=== PATIENT | male | born 1950 | race Caucasian/White ===

== ENCOUNTER 2020-11-25 15:42 | Inpatient (IN) ==
[2020-11-25 16:32] LABS: Partial Thromboplastin Ratio 1.1; Partial Thromboplastin Time 27.9 Seconds (21.0-31.0); Prothrombin Time 9.8 Seconds (9.0-12.0)
[2020-11-25 16:38] LABS: Hematocrit (blood only) 20.1 % (42-52); Hemoglobin 6.6 g/dL (14.0-18.0); Mean Corpuscular Hemoglobin 38.8 pg (25-34); Mean Corpuscular Hgb Conc 32.8 g/dL (32-36); Mean Corpuscular Volume 118.2 fL (80-100); Mean Platelet Volume 8.9 fL (7.4-10.4); Nucleated RBC # (auto) 0.13 K/uL (0-0); Nucleated RBC % (auto) 1.2 %; Platelet Count 360 K/uL (130-400); RDW Coefficient of Variation 17.1 % (11.5-14.5); RDW Standard Deviation 71.5 fL (36.4-46.3); White Blood Count 10.55 K/uL (4.8-10.8)
[2020-11-25 16:39] LABS: Alanine Aminotransferase 30 U/L (12-78); Albumin Level 4.1 gm/dl (3.4-5.0); Aspartate Aminotransferase 30 U/L (15-37); BUN Creatinine Ratio 15.7 (10-20); Basophils # (auto) 0.02 K/uL (0-0.2); Basophils % (auto) 0.2 %; Blood Urea Nitrogen 22 mg/dl (7-18); Calcium 8.9 mg/dl (8.5-10.1); Carbon Dioxide 25 mmol/L (21-32); Chloride 108 mmol/L (98-107); Eosinophils # (auto) 0.04 K/uL (0-0.5); Eosinophils % (auto) 0.4 %; Est GFR (African American) 57.5 ml/min; Est GFR (Non-African American) 49.6 ml/min; Glucose 104 mg/dl (70-99); Immature Granulocytes # (auto) 0.13 K/uL (0.00-0.02); Immature Granulocytes % (auto) 1.2 %; Lymphocytes # (auto) 1.61 K/uL (1.2-3.4); Lymphocytes % (auto) 15.3 %; Macrocytosis Present; Monocytes # (auto) 0.94 K/uL (0.11-0.59); Monocytes % (auto) 8.9 %; Neutrophils # (auto) 7.81 K/uL (1.4-6.5); Polychromasia 2+; Potassium 4.4 mmol/L (3.5-5.1); Sodium 138 mmol/L (136-145)
[2020-11-25 16:44] LABS: Albumin Globulin Ratio 1.3 (0.9-2); Alkaline Phosphatase 112 U/L (45-117); Bilirubin,Total 1.4 mg/dl (0.2-1); Globulin 3.3 gm/dl (2.5-4.0); Total Protein 7.4 gm/dl (6.4-8.2); Troponin I < 0.015 ng/ml (0-0.045)
--- NOTE | 2020-11-25 16:48 | XRay Report ---
XR chest 1V portable HISTORY: Atypical Chest Pain COMPARISON: None. FINDINGS: No pneumothorax. No pleural effusions. No focal lung consolidations to suggest pneumonia. N o evidence for pulmonary edema. The heart is normal in size. Small calcification within the left uppe r lobe may represent a pleural plaque. IMPRESSION: No acute process. ACT 112: Negative or not required by law. Electronically signed by: Kelton Cabrera M.D. 11/25/2020 4:46 PM
[2020-11-25] MEDS ORDERED: SODIUM CHLORIDE 0.9% 250 ML IV PRN ×2 (16:50→21:42)
--- NOTE | 2020-11-25 16:53 | Emergency Department Note ---
Impression & Plan Chest pain, Angina of effort, Anemia ED Provider Note NAME: RYLAN LUNA JR AGE: 70 SEX: M : 1950 ARRIVES VIA: Walk-In INFORMANT: Patient, ED PROVIDER(S): Davon Shelby DO CHIEF COMPLAINT: Chest pain HPI: The patient is a 70-year-old male who presented to the emergency department for an evaluation of chest pain. The patient has noticed for the last 2 weeks has been having chest pain symptoms. He notices pain with exertion. He states his pain is moderate to severe especially with any exertion. He notices eileen rtness of breath associated with the chest pain. The pain as well as the shortness of breath are relieved with rest. He is not noticed any fever or cough. He has had no recent injuries. He is noticed no black or bloody bowel movements. He has no chest pain at this time. He notices no swelling in his legs. He states he went to see his family doctor for the symptoms. He was sent to the sign carpenter today. When he went to see the sign carpenter he was referred directly to the emergency department because of his worsening symptoms for possible cardiac work-up. ROS: See above HPI for pertinent positives & negatives. A total of 10 systems reviewed and were otherwise negative. PAST MEDICAL HISTORY: See Below PAST SURGICAL HISTORY: See Below FAMILY HISTORY: See Below SOCIAL HISTORY: See Below HOME MEDICATIONS: See Below ALLERGIES: See Below VITALS: See Below PHYSICAL EXAMINATION: GENERAL: Patient is awake alert in no acute distress patient is resting comfor tably and showing no signs of anxiety EYES: The conjunctivae are pale. The pupils are round and reactive. EARS, NOSE, MOUTH AND THROAT: The nose is without any evidence of any deformity. Mucous membranes are moist. Tongue is midline. NECK: The neck is nontender and supple. RESPIRATORY: Normal respiratory effort is noted there is no evidence of wheezing rhonchi or rales CARDIOVASCULAR: Regular rate and rhythm noted there no murmurs rubs or gallops normal S1 normal S2. GASTROINTESTINAL: The abdomen is soft. Abdomen is nontender. Rectal exam revealed brown stool which was heme-negative. MUSCULOSKELETAL/EXTREMITIES: There is no evidence of gross deformity full range of motion is noted in the hips and shoulders. SKIN: Skin was warm and dry. Trace pedal edema was noted bilaterally. NEUROLOGIC: Patient is awake alert and oriented x3. MEDICAL DECISION MAKING: The patient is a 70-year-old male who presented to the emergency department for an evaluation of chest pain. The patient has been experiencing exertional chest pain over the last 2 weeks. He did go to see his family doctor for the symptoms. He was evaluated by his family doctor and felt to be a candidate for cardiology evaluation. He did see a sign carpenter today and when he described his symptoms especially the worsening of the symptoms with shorter and shorter amounts of exertion he was sent to the emergency department for further evaluation. The patient was found to have significant anemia. I do feel this may explain the patient's exertional symptoms especially how they have been worsening over the last 2 weeks. I discussed the patient's laboratory and radiographic studies with him. I discussed his case with the on-call [facility]. They have agreed to evaluate the patient in the emergency department for further management and disposition. The patient had blood transfusion ordered by myself. I consented the patient for blood. Triage Nursing notes reviewed. Prior medical records reviewed Vital Signs: reviewed and remarkable for no significant abnormalities Differential diagnosis: Cardiac ischemia, aortic dissection, pulmonary embolism, pneumothorax, pneumonia, pericarditis, myocarditis, esophageal rupture, GERD, cholecystitis, pancreatitis, musculoskeletal, as well as other pathologies. ER treatment provided: See below Diagnostics interpreted by me: ECG: EKG was obtained in the emergency department. My interpretation is normal sinus rhythm at 87 bpm. There was no ectopy. There was no acute ST segment abnormalities noted. No previous tracing was available. Cardiac Monitoring: An order was placed for continuous cardiac monitoring. The monitor shows a rate of 88 bpm with sinus rhythm. Laboratory studies: As stated above and show below. Imaging studies: See below Consultation(s): 1735: I discussed this case with Ramesh who is on-call for the [facility]. ED COURSE: Procedures: none PDMP:reviewed and no issues Critical Care: I have personally spent greater than 45 minutes of critical care time in the direct management of this patient. This includes bedside care, interpretation of diagnostic studies, and testing, discussion with consultants, patient, and family members, and other required patient management activities. This 45 minutes is in excess of all separately billable procedures. Past Med/Surg History Medical History (Updated 11/25/20 @ 17:56 by Davon Shelby DO) Arthritis of hand Chronic kidney disease, stage 3 unspecified Chronic urticaria DDD (degenerative disc disease), lumbar Diverticulosis of large intestine without perforation or abscess without bleeding Dyslipidemia Essential (primary) hypertension Hypertensive kidney disease with chronic kidney disease stage III Lumbar spinal stenosis Mild persistent asthma, uncomplicated Pain in right knee Unilateral primary osteoarthritis, right hip Vitamin D deficiency, unspecified Surgical History H/O spinal fusion 2019 S/P lumbar discectomy 1997 Social History Smoking Status: Former smoker Feels Safe at Home: Yes Allergies Allergies Allergy/AdvReac Type Severity Reaction Status Date / Time No Known Allergies Allergy Mild Verified 11/25/20 17:40 Home Meds Home Medications Medication Instructions Recorded Confirmed acetaminophen 500 mg capsule 1,000 mg PO Q8H PRN cap 09/01/20 11/25/20 allopurinol 100 mg tablet 200 mg PO DAILY tab 09/01/20 11/25/20 aspirin 81 mg chewable tablet 81 mg PO DAILY 09/01/20 11/25/20 atorvastatin 40 mg tablet 40 mg PO HS 09/01/20 11/25/20 colchicine 0.6 mg tablet 0.6 mg PO BID PRN 09/01/20 11/25/20 fluticasone propionate 110 2 puff INHALATION BID 09/01/20 11/25/20 mcg/actuation HFA aerosol inhaler gabapentin 400 mg capsule 400 mg PO TID 09/01/20 11/25/20 hydrocortisone 2.5 % topical cream 1 applic TOPICAL BID PRN 09/01/20 11/25/20 lisinopril 20 mg tablet 20 mg PO DAILY 09/01/20 11/25/20 loratadine 10 mg tablet 10 mg PO DAILY 09/01/20 11/25/20 triamcinolone acetonide 0.1 % 1 applic TOPICAL BID PRN 09/01/20 11/25/20 topical cream albuterol sulfate 1 puff INHALATION DIRECTED PRN 11/25/20 11/25/20 cholecalciferol (vitamin D3) 50 mcg PO DAILY 11/25/20 11/25/20 [Vitamin D3] metoprolol succinate 25 mg PO DAILY 11/25/20 11/25/20 Results & Data (ED) Vital Signs Vital Signs - 24 hr 11/25/20 15:49 Temperature 36.6 C Temperature Source Skin Pulse Rate 88 Respiratory Rate 18 Blood Pressure 135/68 Blood Pressure Mean 90 Pulse Oximetry 98 Oxygen Delivery Method Room Air Sepsis Recent Fever Within 48 Hours No Sepsis New/Unexplained Change in Mental Status No Sepsis Action Taken by Nursing No Action Required Home Medications Current Medication List: was personally reviewed by me Laboratory Data Attestation: I reviewed the patient's lab results. Result diagrams: 11/25/20 Unknown 11/25/20 Unknown Lab Results 11/25/20 11/25/20 11/25/20 Range/Units 16:51 Unknown Unknown WBC 10.55 (4.8-10.8) K/uL RBC 1.70 L (4.7-6.1) M/uL Hgb 6.6 L* (14.0-18.0) g/dL Hct 20.1 L* (42-52) % MCV 118.2 H (80-100) fL MCH 38.8 H (25-34) pg MCHC 32.8 (32-36) g/dL RDW Std Deviation 71.5 H (36.4-46.3) fL RDW Coeff of Marjorie 17.1 H (11.5-14.5) % Plt Count 360 (130-400) K/uL MPV 8.9 (7.4-10.4) fL Immature Gran % (Auto) 1.2 % Neut % (Auto) 74.0 % Lymph % (Auto) 15.3 % [place] % (Auto) 8.9 % Eos % (Auto) 0.4 % Baso % (Auto) 0.2 % Reticulocyte % (Auto) (0.5-2.0) % Neut # (Auto) 7.81 H (1.4-6.5) K/uL Lymph # (Auto) 1.61 (1.2-3.4) K/uL [place] # (Auto) 0.94 H (0.11-0.59) K/uL Eos # (Auto) 0.04 (0-0.5) K/uL Baso # (Auto) 0.02 (0-0.2) K/uL Reticulocyte # (0.02-0.10) 10^6/uL Immature Gran # (Auto) 0.13 H (0.00-0.02) K/uL Absolute Nucleated RBC 0.13 H (0-0) K/uL Nucleated RBC % (auto) 1.2 % Polychromasia 2+ Macrocytosis Present PT 9.8 (9.0-12.0) Seconds INR 1.0 (0.9-1.1) APTT 27.9 (21.0-31.0) Seconds PTT Ratio 1.1 Sodium (136-145) mmol/L Potassium (3.5-5.1) mmol/L Chloride (98-107) mmol/L Carbon Dioxide (21-32) mmol/L Anion Gap (3-11) BUN (7-18) mg/dl Creatinine (0.6-1.4) mg/dl Est Cr Clr Drug Dosing Est GFR ( Amer) ml/min Est GFR (Non-Af Amer) ml/min BUN/Creatinine Ratio (10-20) Glucose (70-99) mg/dl Calcium (8.5-10.1) mg/dl Total Bilirubin (0.2-1) mg/dl AST (15-37) U/L ALT (12-78) U/L Alkaline Phosphatase (45-117) U/L Troponin I (0-0.045) ng/ml Total Protein (6.4-8.2) gm/dl Albumin (3.4-5.0) gm/dl Globulin (2.5-4.0) gm/dl Albumin/Globulin Ratio (0.9-2) Crossmatch See Detail 11/25/20 11/25/20 Range/Units Unknown Unknown WBC (4.8-10.8) K/uL RBC (4.7-6.1) M/uL Hgb (14.0-18.0) g/dL Hct (42-52) % MCV (80-100) fL MCH (25-34) pg MCHC (32-36) g/dL RDW Std Deviation (36.4-46.3) fL RDW Coeff of Marjorie (11.5-14.5) % Plt Count (130-400) K/uL MPV (7.4-10.4) fL Immature Gran % (Auto) % Neut % (Auto) % Lymph % (Auto) % [place] % (Auto) % Eos % (Auto) % Baso % (Auto) % Reticulocyte % (Auto) 22.8 H (0.5-2.0) % Neut # (Auto) (1.4-6.5) K/uL Lymph # (Auto) (1.2-3.4) K/uL [place] # (Auto) (0.11-0.59) K/uL Eos # (Auto) (0-0.5) K/uL Baso # (Auto) (0-0.2) K/uL Reticulocyte # 0.39 H (0.02-0.10) 10^6/uL Immature Gran # (Auto) (0.00-0.02) K/uL Absolute Nucleated RBC (0-0) K/uL Nucleated RBC % (auto) % Polychromasia Macrocytosis PT (9.0-12.0) Seconds INR (0.9-1.1) APTT (21.0-31.0) Seconds PTT Ratio Sodium 138 (136-145) mmol/L Potassium 4.4 (3.5-5.1) mmol/L Chloride 108 H (98-107) mmol/L Carbon Dioxide 25 (21-32) mmol/L Anion Gap 5.0 (3-11) BUN 22 H (7-18) mg/dl Creatinine 1.43 H (0.6-1.4) mg/dl Est Cr Clr Drug Dosing Not Reportable Est GFR ( Amer) 57.5 ml/min Est GFR (Non-Af Amer) 49.6 ml/min BUN/Creatinine Ratio 15.7 (10-20) Glucose 104 H (70-99) mg/dl Calcium 8.9 (8.5-10.1) mg/dl Total Bilirubin 1.4 H (0.2-1) mg/dl AST 30 (15-37) U/L ALT 30 (12-78) U/L Alkaline Phosphatase 112 (45-117) U/L Troponin I < 0.015 (0-0.045) ng/ml Total Protein 7.4 (6.4-8.2) gm/dl Albumin 4.1 (3.4-5.0) gm/dl Globulin 3.3 (2.5-4.0) gm/dl Albumin/Globulin Ratio 1.3 (0.9-2) Crossmatch Imaging Data Radiologist's Impression: Chest X-Ray 11/25/20 16:10 XR chest 1V portable HISTORY: Atypical Chest Pain COMPARISON: None. FINDINGS: No pneumothorax. No pleural effusions. No focal lung consolidations to suggest pneumonia. No evidence for pulmonary edema. The heart is normal in size. Small calcification within the left upper lobe may represent a pleural plaque. IMPRESSION: No acute process. ACT 112: Negative or not required by law. Electronically signed by: Kelton Cabrera M.D. 11/25/2020 4:46 PM Discharge Plan Visit Data Chief Complaint: Arrhythmia/Palpitations Stated Complaint: DR HERNANDEZ SENT FOR HEART ISSUES ED Provider: Davon Shelby Discharge Problem: Chest pain, Angina of effort, Anemia Patient Disposition: Being Evaluated by Hospitalist Condition: Good Forms Stand Alone Forms: [facility] [place] Prescriptions Prescriptions: No Action colchicine 0.6 mg tablet 0.6 mg PO BID PRN (Reason: GOUT FLARE UPS) RF: 0 loratadine 10 mg tablet 10 mg PO DAILY RF: 0 aspirin 81 mg tablet,chewable 81 mg PO DAILY RF: 0 acetaminophen 500 mg capsule 1,000 mg PO Q8H PRN (Reason: Pain) RF: 0 Flovent HFA 110 mcg/actuation HFA aerosol inhaler 2 puff inhalation BID RF: 0 gabapentin 400 mg capsule 400 mg PO TID RF: 0 triamcinolone acetonide 0.1 % cream 1 applic topical BID PRN (Reason: Skin Irritation) RF: 0 lisinopril 20 mg tablet 20 mg PO DAILY RF: 0 atorvastatin 40 mg tablet 40 mg PO HS RF: 0 allopurinol 100 mg tablet 200 mg PO DAILY RF: 0 hydrocortisone 2.5 % cream 1 applic topical BID PRN (Reason: Skin Irritation) RF: 0 cholecalciferol (vitamin D3) [Vitamin D3] 50 mcg (2,000 unit) Capsule 50 mcg PO DAILY RF: 0 albuterol sulfate 90 mcg/actuation HFA aerosol inhaler 1 puff INHALATION DIRECTED PRN (Reason: Shortness Of Breath) RF: 0 metoprolol succinate 25 mg tablet extended release 24 hr 25 mg PO DAILY RF: 0 Referrals Referrals: David Garcia MD [Primary Care Provider] - Discharge Problem: Chest pain Qualifiers: Chest pain type: unspecified Qualified Code(s): R07.9 - Chest pain, unspecified Anemia Qualifiers: Anemia type: unspecified type Qualified Code(s): D64.9 - Anemia, unspecified
[2020-11-25 17:06] LABS: Reticulocyte % 22.8 % (0.5-2.0); Reticulocytes # 0.39 10^6/uL (0.02-0.10)
--- NOTE | 2020-11-25 17:37 | History & Physical Report ---
Date of Service November 25, 2020 Assessment & Plan (1) Chest pain: - Admit to PCU for r/o - Trend cardiac biomarkers, initial set was negative - EKG reviewed as above - Check 2 D echo - Likely due to severe anemia vs cardiac cause, was seen by Dr. Viclhis in outpatient clinic earlier today. Will consult their team. - PT/OT consulted (2) Anemia, macrocytic: - Check anemia workup for further evaluation- MCV 118.2, MCH 38.8 - Likely contributing to the patient's chest pain over the past 2 weeks vs cardiac cause. - Hemoccult was negative in the ER - no ROS positive for gi bleed. - Consider hematology consult pending results, will likely require outpatient follow up on dc. (3) Essential (primary) hypertension: -History of such, continue lisinopril 20 mg daily - Was started on metoprolol succinate 25 mg daily on 11/24 by PCP, will continue for now. Possible that pt wont need this is symptomatic anemia from non cardiac cause. (4) Dyslipidemia: -Continue statin therapy (5) Chronic kidney disease, stage 3 unspecified: -History of such, baseline of 1.2, currently Cr. 1.43, BUN 22 -Avoid nephrotoxins and renally reduce medications (6) Lumbar spinal stenosis: -History of lumbar decompression fusion from L4-S1 done at [facility] in January 2019. -Patient reports rarely taking ibuprofen for pain relief (7) DDD (degenerative disc disease), lumbar: -As above DVT PPx: - teds, scds, no chemical prophylaxis in the setting of severe anemia CODE: Full code Dispo: From home, likely to remain in the hospital x 1-2 days History of Present Illness Primary Care Provider: David Garcia MD This is a 70-year-old male with PMHx of HTN, HLD, CKD stage III, asthma, diverticulosis, spinal stenosis, degenerative disc disease, osteoarthritis who presents to the ER with acute chest pain over the last 2 weeks. 2 weeks ago he complained of a near syncopal event on a hot day at his granddaughter's birthday green party. He felt as if he was going to pass out but then he went into the house to cool down and felt somewhat better. In the past 2 weeks when he was exposed to warm weather again, he felt as if he was going to pass out. There was some mild associated shortness of breath at that time. Symptoms slowly resolved that day. Over the past 2 weeks he has noted progressive dyspnea on exertion with it associated chest burning. Discomfort and shortness of breath is now occurring with ADLs. Seen by his primary care physician yesterday where ECG was performed. No ischemic changes were noted. He was prescribed metoprolol succinate 25 mg and started yesterday. Chronically treated with aspirin and statin therapy. Today, patient experienced significant shortness of breath upon walking from the [facility] space into cardiology office at [facility]. His SOB required him to stop and sit down on his rolling walker 3 times. States that the exertional chest burning has improved with addition of beta-gabrielle therapy however dyspnea persists. Currently he denies any chest pain. Patient was sent to the ER based on his symptoms and was found to have a hemoglobin of 6.6. Heme negative on BRAXTON performed in the ER. He has been ordered 2 units of PRBCs. Allergies Allergy/AdvReac Type Severity Reaction Status Date / Time No Known Allergies Allergy Mild Verified 11/25/20 17:40 Home Medications Medication Instructions Recorded Confirmed Type acetaminophen 500 mg capsule 1,000 mg PO Q8H PRN cap 09/01/20 11/25/20 History allopurinol 100 mg tablet 200 mg PO DAILY tab 09/01/20 11/25/20 History aspirin 81 mg chewable tablet 81 mg PO DAILY 09/01/20 11/25/20 History atorvastatin 40 mg tablet 40 mg PO HS 09/01/20 11/25/20 History colchicine 0.6 mg tablet 0.6 mg PO BID PRN 09/01/20 11/25/20 History fluticasone propionate 110 2 puff INHALATION BID 09/01/20 11/25/20 History mcg/actuation HFA aerosol inhaler gabapentin 400 mg capsule 400 mg PO TID 09/01/20 11/25/20 History hydrocortisone 2.5 % topical cream 1 applic TOPICAL BID PRN 09/01/20 11/25/20 History lisinopril 20 mg tablet 20 mg PO DAILY 09/01/20 11/25/20 History loratadine 10 mg tablet 10 mg PO DAILY 09/01/20 11/25/20 History triamcinolone acetonide 0.1 % 1 applic TOPICAL BID PRN 09/01/20 11/25/20 History topical cream albuterol sulfate 1 puff INHALATION DIRECTED PRN 11/25/20 11/25/20 History cholecalciferol (vitamin D3) 50 mcg PO DAILY 11/25/20 11/25/20 History [Vitamin D3] metoprolol succinate 25 mg PO DAILY 11/25/20 11/25/20 History Past Med/Surg History Medical History (Updated 11/25/20 @ 17:56 by Davon Shelby DO) Arthritis of hand Chronic kidney disease, stage 3 unspecified Chronic urticaria DDD (degenerative disc disease), lumbar Diverticulosis of large intestine without perforation or abscess without bleeding Dyslipidemia Essential (primary) hypertension Hypertensive kidney disease with chronic kidney disease stage III Lumbar spinal stenosis Mild persistent asthma, uncomplicated Pain in right knee Unilateral primary osteoarthritis, right hip Vitamin D deficiency, unspecified Surgical History H/O spinal fusion 2019 S/P lumbar discectomy 1997 Social History Smoking Status: Former smoker Feels Safe at Home: Yes Review of Systems Review of Systems: Constitutional: No fever, sweats or chills Eyes: No diplopia, no worsening or blurred vision ENT: normal hearing, no trouble swallowing Respiratory: No cough, sputum, dyspnea at rest or on exertion Cardiovascular: As per HPI. Currently no chest pain, tightness or palpitations Abdomen: No pain, nausea, vomiting, diarrhea or constipation Musculoskeletal: No joint pain, calf pain, swelling Neurologic: No weakness, numbness/tingling, or balance problems Psychiatric: No anxiety or depression Skin: No rash or itch Physical Exam Physical Exam: General: awake, alert, no apparent distress, obese Head: Normocephalic, atraumatic ENT: PERRL, EOMI, +pale palpebral conjunctiva, pallor of pharynx, no pharyngeal exudate, mucous membranes moist Chest: Clear to auscultation, on room air, no adventitious breath sounds Cardiac: Regular rate and rhythm, no murmur, no JVD, normal peripheral pulses, good capillary refill Abdominal: NABS x 4 quadrants, soft, nondistended, nontender to palpation, no rebound or guarding Extremities: +pallor, few small areas over BUE of ecchymosis, otherwise normal inspection, no peripheral edema or erythema, calfs nontender to palpation Psych: Normal mood and affect Neuro: AAO x 3, strength intact bilaterally and rated 5/5, no motor deficits, s peech is clear, no peripheral sensory deficits Results & Data Results & Data ([facility]) Vital Signs (Past 12 Hours) Vital Signs Temp Pulse Resp BP Pulse Ox 11/25/20 15:49 36.6 C 88 18 135/68 98 Diagnostic Findings Chest X-Ray 11/25/20 16:10 XR chest 1V portable HISTORY: Atypical Chest Pain COMPARISON: None. FINDINGS: No pneumothorax. No pleural effusions. No focal lung consolidations to suggest pneumonia. No evidence for pulmonary edema. The heart is normal in size. Small calcification within the left upper lobe may represent a pleural plaque. IMPRESSION: No acute process. ACT 112: Negative or not required by law. Electronically signed by: Kelton Cabrera M.D. 11/25/2020 4:46 PM Code Status & VTE Plan Code Status Full code - discussed with the patient at bedside. Supervising Physician Co-Signing Physician Notes Care coordinated with Zora Vu PA-C. Agree with above note. Patient seen and examined. Please refer to her notes for full details. Vital signs reviewed. Physical exam: General exam: Alert and oriented. Not in acute distress. CVS: S1 and S2 heard, regular rate and rhythm, no murmurs. RS: Clear to auscultation, no wheezing or crackles. ABD: Soft, bowel sounds present, nontender, no distention. BILLBOARD INSTALLER: Nonfocal. EXT: No edema, no erythema. Labs: Reviewed. Assessment and plan: 70M with hx of HTN , asthma, ckd stage 3,hyperlipidemia presents with ongoing chest pain and sob on exertion. About two weeks ago he had near syncope on his grand daughter birthday.Was prescribed b gabrielle by PCP> Today experienced significant sob on going to cardiology office and was sent here further evaluation and in ER found to have hb 6.6. Hemeoccult negative Currently resting comfortably. Symptomatic anemia macrocytic hb 6.6 hemeoccult negative iron and vitamin b12 and folate levels ok having antibodies- will take time to get he blood to transfuse two units and hold two units heme/onco consult in patinet vs out patient GI consult. Chest pain sob on exertion ekg ok follow troponin and echo tele monitoring anemia contributing cardiology consult in am. Other diagnosis and plan of care as per Zora Vu PA-C. Manjit durán MD. (1) Chest pain Chest pain type: unspecified Qualified Code(s): R07.9 - Chest pain, unspecified
[2020-11-25 18:27] LABS: Ferritin 509.7 ng/ml (8-388); T4 Free Thyroxine 1.02 ng/dl (0.8-1.6); Thyroid Stimulating Hormone 0.767 uIu/ml (0.300-4.500)
[2020-11-25 20:02] LABS: Folate (Folic Acid) 16.1 ng/ml (>5.38)
[2020-11-25] MEDS ORDERED: ONDANSETRON INJ 2 MG/ML 2 ML VIAL IV PRN (21:59)
[2020-11-25] MEDS ORDERED: ACETAMINOPHEN 325 MG TAB PO PRN (21:59)
[2020-11-25] MEDS ORDERED: ALBUTEROL HFA 8 GM INHALER INH PRN (21:59)
[2020-11-25] MEDS ORDERED: TRIAMCINOLONE ACET 0.1% CR 15 GM TUBE TOP PRN (21:59)
[2020-11-25] MEDS: GABAPENTIN 400 MG CAP PO SCH (22:29)
[2020-11-25] MEDS: FLUTICASONE FUROATE 200MCG 14 PUFFS/INHALER INH SCH (22:29)
[2020-11-25] MEDS: ATORVASTATIN 40 MG TAB PO SCH (22:29)
[2020-11-25 23:17] LABS: Hematocrit (blood only) 18.8 % (42-52); Hemoglobin 6.1 g/dL (14.0-18.0)
[2020-11-26 06:47] LABS: Hematocrit (blood only) 18.4 % (42-52); Hemoglobin 5.8 g/dL (14.0-18.0); Mean Corpuscular Hemoglobin 38.2 pg (25-34); Mean Corpuscular Hgb Conc 31.5 g/dL (32-36); Mean Corpuscular Volume 121.1 fL (80-100); Mean Platelet Volume 8.8 fL (7.4-10.4); Nucleated RBC # (auto) 0.06 K/uL (0-0); Platelet Count 329 K/uL (130-400); RDW Coefficient of Variation 17.2 % (11.5-14.5); RDW Standard Deviation 73.4 fL (36.4-46.3); Red Blood Count 1.52 M/uL (4.7-6.1); White Blood Count 6.58 K/uL (4.8-10.8)
[2020-11-26 07:01] LABS: Basophils # (auto) 0.01 K/uL (0-0.2); Basophils % (auto) 0.2 %; Eosinophils # (auto) 0.07 K/uL (0-0.5); Eosinophils % (auto) 1.1 %; Immature Granulocytes # (auto) 0.06 K/uL (0.00-0.02); Immature Granulocytes % (auto) 0.9 %; Lymphocytes # (auto) 1.64 K/uL (1.2-3.4); Lymphocytes % (auto) 24.9 %; Monocytes # (auto) 0.64 K/uL (0.11-0.59); Monocytes % (auto) 9.7 %; Neutrophils # (auto) 4.16 K/uL (1.4-6.5); Neutrophils % (auto) 63.2 %; Polychromasia 2+; Spherocytes 1+; Tear Drop Cells 1+
[2020-11-26 07:29] LABS: Albumin Level 3.5 gm/dl (3.4-5.0); Aspartate Aminotransferase 25 U/L (15-37); BUN Creatinine Ratio 15.7 (10-20); Blood Urea Nitrogen 16 mg/dl (7-18); Calcium 8.5 mg/dl (8.5-10.1); Carbon Dioxide 25 mmol/L (21-32); Chloride 109 mmol/L (98-107); Creatinine Clr Calc Pharmacy 74.9 ml/min; Est GFR (African American) 86.5 ml/min; Est GFR (Non-African American) 74.6 ml/min; Glucose 107 mg/dl (70-99); Magnesium 2.3 mg/dl (1.8-2.4); Potassium 4.2 mmol/L (3.5-5.1); Sodium 140 mmol/L (136-145)
[2020-11-26 07:33] LABS: Alanine Aminotransferase 24 U/L (12-78); Albumin Globulin Ratio 1.2 (0.9-2); Alkaline Phosphatase 97 U/L (45-117); Bilirubin,Total 1.5 mg/dl (0.2-1); Globulin 2.8 gm/dl (2.5-4.0); Phosphorus 3.2 mg/dl (2.5-4.9); Total Protein 6.3 gm/dl (6.4-8.2); Troponin I < 0.015 ng/ml (0-0.045)
[2020-11-26] MEDS ORDERED: ASPIRIN 81 MG ECTAB PO SCH (09:00)
[2020-11-26] MEDS: GABAPENTIN 400 MG CAP PO SCH ×3 (09:03→19:34)
[2020-11-26] MEDS: lisinopril 20 MG TAB PO SCH (09:04)
[2020-11-26] MEDS: LORATADINE 10 MG TAB PO SCH (09:04)
[2020-11-26] MEDS: allopurinoL 100 MG TAB PO SCH (09:04)
[2020-11-26] MEDS: METOPROLOL SUCC 25MG EXT REL TAB PO SCH (09:04)
[2020-11-26] MEDS: CHOLECALCIFEROL 1,000 UNITS 25 MCG TAB PO SCH (09:05)
--- NOTE | 2020-11-26 11:42 | Cardiology Consultation ---
Date of Consultation November 26, 2020 Assessment & Plan (1) Anemia, macrocytic: (2) Chest pain: (3) Anemia: (4) Essential (primary) hypertension: (5) Dyslipidemia: (6) Dyspnea on exertion: Mr. Tanner initially presented as an outpatient for symptoms consistent with unstable angina. Admitted to [facility] and upon arrival found to be profoundly anemic. EKG, troponin and echocardiogram all unremarkable. I believe his symptoms are secondary to his profound anemia and not an acute ischemic event. Possible component of demand ischemia but given anemia and normal wall motion on echocardiogram ischemic evaluation will be deferred at this time. Recommend transfusing to maintain hemoglobin greater than 10. Obviously, no indication for anticoagulation at this time. We will defer anemia work-up to the primary team. We will continue to follow closely during admission. History of Present Illness Reason for Consultation: Chest pain and dyspnea with exertion Requesting Physician: [facility] Attending Physician: Rosalinda Yuen MD History of Present Illness 70 year old male presents for evaluation of chest discomfort, shortness of breath, and near syncope. Describes an episode of near syncope approximately 2 weeks ago during his granddaughter's birthday green party. He notes it was a hot day. He felt as if he was blacking out. He went into the house to cool down and felt somewhat better. When he returned to the warm weather again he felt as if he was going to pass out. There was some mild associated shortness of breath. Symptoms slowly resolved that day. Over the past 2 weeks he has noted progressive dyspnea on exertion with it associated chest burning. Discomfort and shortness of breath occurring at progressively lower levels of activity/exercise. Seen by his primary care physician yesterday where ECG was performed. No ischemic changes. Prescribed low-dose beta-gabrielle therapy. Chronically treated with aspirin and statin therapy. On 11/25/[address] Dinh of our cardiology practice. At that time he experienced significant shortness of breath upon walking from the [employer] parking to the office. He had to stop and sit on his rolling walker 3 times. States that the exertional chest burning has improved with addition of beta-gabrielle therapy however dyspnea persists. Denies any resting chest discomfort or shortness of breath. No recurrent lightheadedness, dizziness, syncope, or near syncope. Denies palpitations recent travel, lower extremity edema, calf tenderness, or history of thrombosis. Currently out of bed in chair receiving transfusion. Notes energy seems to be improving with transfusion. Allergies Allergy/AdvReac Type Severity Reaction Status Date / Time No Known Allergies Allergy Mild Verified 11/25/20 17:40 Home Medications Medication Instructions Recorded Confirmed Type acetaminophen 500 mg capsule 1,000 mg PO Q8H PRN cap 09/01/20 11/25/20 History allopurinol 100 mg tablet 200 mg PO DAILY tab 09/01/20 11/25/20 History aspirin 81 mg chewable tablet 81 mg PO DAILY 09/01/20 11/25/20 History atorvastatin 40 mg tablet 40 mg PO HS 09/01/20 11/25/20 History colchicine 0.6 mg tablet 0.6 mg PO BID PRN 09/01/20 11/25/20 History fluticasone propionate 110 2 puff INHALATION BID 09/01/20 11/25/20 History mcg/actuation HFA aerosol inhaler gabapentin 400 mg capsule 400 mg PO TID 09/01/20 11/25/20 History hydrocortisone 2.5 % topical cream 1 applic TOPICAL BID PRN 09/01/20 11/25/20 History lisinopril 20 mg tablet 20 mg PO DAILY 09/01/20 11/25/20 History loratadine 10 mg tablet 10 mg PO DAILY 09/01/20 11/25/20 History triamcinolone acetonide 0.1 % 1 applic TOPICAL BID PRN 09/01/20 11/25/20 History topical cream albuterol sulfate 1 puff INHALATION DIRECTED PRN 11/25/20 11/25/20 History cholecalciferol (vitamin D3) 50 mcg PO DAILY 11/25/20 11/25/20 History [Vitamin D3] metoprolol succinate 25 mg PO DAILY 11/25/20 11/25/20 History Patient History Medical History Arthritis of hand Chronic kidney disease, stage 3 unspecified Chronic urticaria DDD (degenerative disc disease), lumbar Diverticulosis of large intestine without perforation or abscess without bleeding Dyslipidemia Essential (primary) hypertension Hypertensive kidney disease with chronic kidney disease stage III Lumbar spinal stenosis Mild persistent asthma, uncomplicated Pain in right knee Unilateral primary osteoarthritis, right hip Vitamin D deficiency, unspecified Surgical History H/O spinal fusion 2019 S/P lumbar discectomy 1997 Social History Smoking Status: Former smoker Hx Alcohol Use: Yes Alcohol type: beer Hx Substance Use: No Preferred Language: Turkmen Communication Ability: Effective Correspondence Analyst Required: No Beliefs That Will Affect Care: None Current Living Situation: Spouse Other Information That Helps Us Care for You: No Feels Safe at Home: Yes Safety Concerns: Feels Safe At This Time Assistive Devices: Glasses Review of Systems Review of Systems: All systems reviewed & are unremarkable except as noted in HPI & below Physical Exam Physical Exam: General: Awake, alert and oriented x 3. No acute distress. HEENT: Normocephalic, atraumatic. Pupils equal, round and reactive to light and accommodation. Extraocular muscles are intact. Anicteric sclera. Moist mucous membranes. Neck: No JVD. No bruit. Cardiovascular: Regular. Positive S-4. Normal S-1 and S-2. No S-3. 3/6 mid to late systolic ejection murmur, greatest at the right sternal border, second intercostal space with radiation to the bilateral carotids. No rubs. Pulmonary: Clear to auscultation bilaterally. No rales, rhonchi, or wheezing. Abdomen: Bowel sounds x 4, soft. No rebound, guarding or tenderness. No organomegaly. Extremities: No clubbing, cyanosis or edema. +2 pedal pulses bilaterally. Skin: Warm and dry. Results & Data ([facility]) Vital Signs (Past 12 Hours) Vital Signs Temp Pulse Pulse Resp BP BP Pulse Ox 11/26/20 10:47 36.8 C 91 H 20 110/66 98 11/26/20 10:32 36.7 C 84 16 115/66 94 11/26/20 07:37 36.7 C 83 20 126/72 95 11/26/20 03:22 36.6 C 84 18 124/68 92 11/26/20 00:00 85 (1) Anemia Anemia type: unspecified type Qualified Code(s): D64.9 - Anemia, unspecified (2) Chest pain Chest pain type: unspecified Qualified Code(s): R07.9 - Chest pain, unspecified
[2020-11-26 19:02] LABS: Hematocrit (blood only) 25.2 % (42-52); Hemoglobin 8.2 g/dL (14.0-18.0); Mean Corpuscular Hemoglobin 33.7 pg (25-34); Mean Corpuscular Hgb Conc 32.5 g/dL (32-36); Mean Corpuscular Volume 103.7 fL (80-100); Nucleated RBC # (auto) 0.16 K/uL (0-0); Platelet Count 308 K/uL (130-400); RDW Coefficient of Variation 26.4 % (11.5-14.5); RDW Standard Deviation 94.4 fL (36.4-46.3); Red Blood Count 2.43 M/uL (4.7-6.1); White Blood Count 8.23 K/uL (4.8-10.8)
[2020-11-26] MEDS: ATORVASTATIN 40 MG TAB PO SCH (19:34)
[2020-11-26] MEDS: FLUTICASONE FUROATE 200MCG 14 PUFFS/INHALER INH SCH (19:35)
--- NOTE | 2020-11-26 19:45 | Hospitalist Progress Note ---
Date of Service November 26, 2020 Assessment & Plan (1) Chest pain: Mostly related to severe anemia Troponin x 3 negative EKG showed no acute ischemic changes Echo showed no LV wall motion abnormality with EF greater than 70 Cardiology on board and recommended to keep hgb above 10 Continue to hold aspirin Continue Metoprolol and statin (2) Anemia, macrocytic: Symptomatic anemia Hgb on admission 6.1, then 5.8 today Hemoccult was negative in the ER and denies any dark stool Last colonoscopy was about 2 years ago as per patient and was negative for malignancy Aspirin on hold Continue monitor CBC Cardiology recommended to keep hgb above 10 Will need follow up with hematology If Hgb continues to drop, will consult hematology and gastro (3) Essential (primary) hypertension: Continue Lisinopril and metoprolol stable (4) Dyslipidemia: -Continue statin therapy (5) Chronic kidney disease, stage 3 unspecified: Creatinine 1.4 on admission, baseline of 1.2, Creatinine 1.02 today Avoid nephrotoxins agents Continue monitor BMP (6) DDD (degenerative disc disease), lumbar: DVT PPx: teds, scds, no chemical prophylaxis in the setting of severe anemia CODE: Full code Dispo Will discharge once medically stable (7) Lumbar spinal stenosis: History of lumbar decompression fusion from L4-S1 done at [facility] in January 2019. Patient reports rarely taking ibuprofen for pain relief Pt was advised to avoid any NSAIDs Admission and Anticipated Discharge Date Admission Date: November 25, 2020 Subjective Pt was seen and examined for anemia Sitting in chair with no distress Pt said that he feels weak He is getting the 1st unit PRBC since he had antibodies that delayed the transfusion Denies any chest pain, palpitation, dizziness and SOB Review of Systems Review of Systems: All systems reviewed & are unremarkable except as noted in Subjective Physical Exam Physical Exam: General- No acute distress Head- atraumatic Eyes- PERRL, EOMI, ENT- oropharynx clear Neck- supple, no JVD Lungs- clear to auscultation Heart- regular rhythm; + murmur Abdomen- normal bowel sounds, soft, nontender Extremities- no calf tenderness Neuro- alert, oriented x 3; PERRL, EOMI; no facial palsy; no dysarthria Skin- warm & dry Results & Data Results & Data ([facility]) Vital Signs (Past 12 Hours) Vital Signs Temp Pulse Pulse Resp BP BP Pulse Ox 11/26/20 19:01 36.7 C 92 H 20 117/71 91 11/26/20 14:48 77 16 133/77 96 11/26/20 14:18 36.8 C 77 16 107/68 96 11/26/20 14:03 36.8 C 82 16 108/67 96 11/26/20 13:48 36.8 C 83 16 145/69 H 96 11/26/20 13:31 36.7 C 93 H 16 145/69 H 96 11/26/20 13:02 36.7 C 84 16 117/71 98 11/26/20 12:02 36.8 C 87 16 129/74 98 11/26/20 11:32 36.8 C 76 16 106/66 97 11/26/20 11:02 36.7 C 76 16 107/66 96 11/26/20 10:47 36.8 C 91 H 20 110/66 98 11/26/20 10:32 36.7 C 84 16 115/66 94 (1) Chest pain Chest pain type: unspecified Qualified Code(s): R07.9 - Chest pain, unspecified
--- NOTE | 2020-11-27 06:19 | Electrocardiogram Report ---
Test Reason : Blood Pressure : / mmHG Vent. Rate : 087 BPM Atrial Rate : 087 BPM P-R Int : 144 ms QRS Dur : 082 ms QT Int : 368 ms P-R-T Axes : 064 040 029 degrees QTc Int : 442 ms Normal sinus rhythm Normal ECG No previous ECGs available Confirmed by Stephane Kunz ([id number]) on 11/27/2020 6:18:51 AM Referred By: Kevin Dinh Confirmed By:Stephane Kunz
[2020-11-27 07:00] LABS: Albumin Level 3.5 gm/dl (3.4-5.0); Calcium 8.5 mg/dl (8.5-10.1); Creatinine Clr Calc Pharmacy 74.5 ml/min; Est GFR (African American) 85.5 ml/min; Est GFR (Non-African American) 73.8 ml/min; Potassium 4.1 mmol/L (3.5-5.1)
[2020-11-27 07:03] LABS: Albumin Globulin Ratio 1.2 (0.9-2); Bilirubin,Total 1.7 mg/dl (0.2-1); Globulin 2.9 gm/dl (2.5-4.0); Total Protein 6.4 gm/dl (6.4-8.2)
[2020-11-27 07:57] LABS: Hematocrit (blood only) 26.5 % (42-52); Hemoglobin 8.8 g/dL (14.0-18.0); Mean Corpuscular Hemoglobin 34.1 pg (25-34); Mean Corpuscular Hgb Conc 33.2 g/dL (32-36); Mean Corpuscular Volume 102.7 fL (80-100); Mean Platelet Volume 8.9 fL (7.4-10.4); Nucleated RBC # (auto) 0.08 K/uL (0-0); Platelet Count 298 K/uL (130-400); Red Blood Count 2.58 M/uL (4.7-6.1); White Blood Count 7.94 K/uL (4.8-10.8)
[2020-11-27] MEDS: LORATADINE 10 MG TAB PO SCH (08:23)
[2020-11-27] MEDS: CHOLECALCIFEROL 1,000 UNITS 25 MCG TAB PO SCH (08:23)
[2020-11-27] MEDS: METOPROLOL SUCC 25MG EXT REL TAB PO SCH (08:23)
[2020-11-27] MEDS: lisinopril 20 MG TAB PO SCH (08:24)
[2020-11-27] MEDS: allopurinoL 100 MG TAB PO SCH (08:25)
[2020-11-27] MEDS: GABAPENTIN 400 MG CAP PO SCH ×3 (08:25→19:41)
[2020-11-27] MEDS ORDERED: SODIUM CHLORIDE 0.9% 250 ML IV PRN (08:36)
--- NOTE | 2020-11-27 13:16 | Cardiology Progress Note ---
Date of Service November 27, 2020 Assessment & Plan (1) Anemia, macrocytic: (2) Chest pain: (3) Anemia: (4) Essential (primary) hypertension: (5) Dyslipidemia: (6) Dyspnea on exertion: Mr. Tanner initially presented as an outpatient for symptoms consistent with unstable angina. Admitted to [facility] and upon arrival found to be profoundly anemic. EKG, troponin and echocardiogram all unremarkable. I believe his symptoms are secondary to his profound anemia and not an acute ischemic event. Possible component of demand ischemia but given anemia and normal wall motion on echocardiogram ischemic evaluation will be deferred at this time. Recommend transfusing to maintain hemoglobin greater than 10. Obviously, no indication for anticoagulation at this time. We will defer anemia work-up to the primary team. Okay to DC telemetry from a cardiac standpoint. Admission and Anticipated Discharge Date Admission Date: November 25, 2020 Subjective Patient seen and examined, chart reviewed. Case discussed with nursing and primary team. Currently receiving his third unit of packed red blood cells. Clinically states he feels well. States that chest pain and shortness of breath have resolved and denies palpitations or lightheadedness. Telemetry reviewed: Normal sinus rhythm without arrhythmia or significant ectopy. Review of Systems Review of Systems: All systems reviewed & are unremarkable except as noted in HPI & below Physical Exam Physical Exam: General: Awake, alert and oriented x 3. No acute distress. HEENT: Normocephalic, atraumatic. Pupils equal, round and reactive to light and accommodation. Extraocular muscles are intact. Anicteric sclera. Moist mucous membranes. Neck: No JVD. No bruit. Cardiovascular: Regular. Positive S-4. Normal S-1 and S-2. No S-3. No murmurs or rubs. Pulmonary: Clear to auscultation B/L. No rales, rhonchi or wheezing Abdomen: Bowel sounds x 4, soft. No rebound, guarding or tenderness. No organomegaly. Extremities: No clubbing, cyanosis or edema. +2 pedal pulses bilaterally. Skin: Warm and dry. Results & Data ([facility]) Vital Signs (Past 12 Hours) Vital Signs Temp Pulse Pulse Resp BP BP Pulse Ox 11/27/20 11:16 36.9 C 77 16 118/70 93 11/27/20 10:46 36.8 C 76 16 120/70 94 11/27/20 10:31 36.8 C 77 16 110/70 93 11/27/20 10:16 36.9 C 81 16 110/65 96 11/27/20 07:45 37.1 C 75 18 123/71 94 11/27/20 02:59 36.9 C 88 20 114/68 93 (1) Chest pain Chest pain type: unspecified Qualified Code(s): R07.9 - Chest pain, unspecified (2) Anemia Anemia type: unspecified type Qualified Code(s): D64.9 - Anemia, unspecified
--- NOTE | 2020-11-27 18:41 | Hospitalist Progress Note ---
Date of Service November 27, 2020 Assessment & Plan (1) Chest pain: Mostly related to severe anemia Troponin x 3 negative EKG showed no acute ischemic changes Echo showed no LV wall motion abnormality with EF greater than 70 Cardiology on board and recommended to keep hgb above 10 Continue to hold aspirin Continue Metoprolol and statin (2) Anemia, macrocytic: Symptomatic anemia Hgb on admission 6.1, then 8.8today Hemoccult was negative in the ER and denies any dark stool Last colonoscopy was about 2 years ago as per patient and was negative for malignancy Status post transfusion with 2 unit PRBC on 11/26 We will transfuse an additional 1 unit PRBC today Continue to hold aspirin Continue monitor CBC Cardiology recommended to keep hgb above 10 Will need follow up with hematology If Hgb continues to drop, will consult hematology and gastro (3) Essential (primary) hypertension: Continue Lisinopril and metoprolol stable (4) Dyslipidemia: -Continue statin therapy (5) Chronic kidney disease, stage 3 unspecified: Creatinine 1.4 on admission, baseline of 1.2, Creatinine 1.02 today Avoid nephrotoxins agents Continue monitor BMP (6) DDD (degenerative disc disease), lumbar: DVT PPx: teds, scds, no chemical prophylaxis in the setting of severe anemia CODE: Full code Dispo Will discharge once medically stable (7) Lumbar spinal stenosis: History of lumbar decompression fusion from L4-S1 done at [facility] in January 2019. Patient reports rarely taking ibuprofen for pain relief Pt was advised to avoid any NSAIDs Admission and Anticipated Discharge Date Admission Date: November 25, 2020 Subjective Patient was seen and examined for follow-up of anemia Lying in bed with no distress Patient said that he feels much better today He said that he has more energy denies any chest pain, palpitation, dizziness, shortness of breath. Review of Systems Review of Systems: All systems reviewed & are unremarkable except as noted in Subjective Physical Exam Physical Exam: General- No acute distress Head- atraumatic Eyes- PERRL, EOMI, ENT- oropharynx clear Neck- supple, no JVD Lungs- clear to auscultation Heart- regular rhythm; + murmur Abdomen- normal bowel sounds, soft, nontender Extremities- no calf tenderness Neuro- alert, oriented x 3; PERRL, EOMI; no facial palsy; no dysarthria Skin- warm & dry Results & Data Results & Data ([facility]) Vital Signs (Past 12 Hours) Vital Signs Temp Pulse Pulse Resp BP BP Pulse Ox 11/27/20 15:47 36.6 C 77 18 117/68 94 11/27/20 11:16 36.9 C 77 16 118/70 93 11/27/20 10:46 36.8 C 76 16 120/70 94 11/27/20 10:31 36.8 C 77 16 110/70 93 11/27/20 10:16 36.9 C 81 16 110/65 96 11/27/20 07:45 37.1 C 75 18 123/71 94 (1) Chest pain Chest pain type: unspecified Qualified Code(s): R07.9 - Chest pain, unspecified
[2020-11-27] MEDS: ATORVASTATIN 40 MG TAB PO SCH (19:42)
[2020-11-27] MEDS: FLUTICASONE FUROATE 200MCG 14 PUFFS/INHALER INH SCH (19:42)
[2020-11-27 20:35] LABS: Hemoglobin 9.8 g/dL (14.0-18.0)
[2020-11-28 06:12] LABS: Hematocrit (blood only) 27.6 % (42-52); Hemoglobin 9.2 g/dL (14.0-18.0); Mean Corpuscular Hemoglobin 32.9 pg (25-34); Mean Corpuscular Hgb Conc 33.3 g/dL (32-36); Mean Corpuscular Volume 98.6 fL (80-100); Mean Platelet Volume 9.1 fL (7.4-10.4); Platelet Count 304 K/uL (130-400); RDW Coefficient of Variation 26.7 % (11.5-14.5); RDW Standard Deviation 91.2 fL (36.4-46.3); White Blood Count 8.15 K/uL (4.8-10.8)
[2020-11-28 06:46] LABS: Albumin Level 3.5 gm/dl (3.4-5.0); BUN Creatinine Ratio 22.3 (10-20); Calcium 8.4 mg/dl (8.5-10.1); Creatinine Clr Calc Pharmacy 72.3 ml/min; Est GFR (African American) 82.6 ml/min; Est GFR (Non-African American) 71.3 ml/min; Potassium 4.4 mmol/L (3.5-5.1)
[2020-11-28 06:49] LABS: Albumin Globulin Ratio 1.3 (0.9-2); Bilirubin,Total 1.9 mg/dl (0.2-1); Globulin 2.8 gm/dl (2.5-4.0); Total Protein 6.3 gm/dl (6.4-8.2)
[2020-11-28] MEDS: CHOLECALCIFEROL 1,000 UNITS 25 MCG TAB PO SCH (08:56)
[2020-11-28] MEDS: allopurinoL 100 MG TAB PO SCH (08:57)
[2020-11-28] MEDS: GABAPENTIN 400 MG CAP PO SCH ×2 (08:57→14:46)
[2020-11-28] MEDS: LORATADINE 10 MG TAB PO SCH (08:57)
[2020-11-28] MEDS: lisinopril 20 MG TAB PO SCH (08:57)
[2020-11-28] MEDS: METOPROLOL SUCC 25MG EXT REL TAB PO SCH (08:58)
--- NOTE | 2020-11-28 12:58 | Cardiology Progress Note ---
Date of Service November 28, 2020 Assessment & Plan (1) Anemia, macrocytic: (2) Chest pain: (3) Anemia: (4) Essential (primary) hypertension: (5) Dyslipidemia: (6) Dyspnea on exertion: Mr. Tanner initially presented as an outpatient for symptoms consistent with unstable angina. Admitted to [facility] and upon arrival found to be profoundly anemic. EKG, troponin and echocardiogram all unremarkable. I believe his symptoms are secondary to his profound anemia and not an acute ischemic event. For further transfusion today should hemoglobin levels not stabilized and then likely DC. Recommend follow-up with cardiology as an outpatient in 1 month. Okay to DC to home from a cardiac standpoint. Admission and Anticipated Discharge Date Admission Date: November 25, 2020 Subjective Patient seen and examined, chart reviewed. States he is feeling well today. Denies chest pain, shortness of breath, palpitations, lightheadedness or dizziness. Telemetry reviewed: Normal sinus rhythm without arrhythmia. Review of Systems Review of Systems: All systems reviewed & are unremarkable except as noted in HPI & below Physical Exam Physical Exam: General: Awake, alert and oriented x 3. No acute distress. HEENT: Normocephalic, atraumatic. Pupils equal, round and reactive to light and accommodation. Extraocular muscles are intact. Anicteric sclera. Moist mucous membranes. Neck: No JVD. No bruit. Cardiovascular: Regular. Positive S-4. Normal S-1 and S-2. No S-3. No murmurs or rubs. Pulmonary: Clear to auscultation B/L. No rales, rhonchi or wheezing Abdomen: Bowel sounds x 4, soft. No rebound, guarding or tenderness. No organomegaly. Extremities: No clubbing, cyanosis or edema. +2 pedal pulses bilaterally. Skin: Warm and dry. Results & Data ([facility]) Vital Signs (Past 12 Hours) Vital Signs Temp Pulse Pulse Resp BP Pulse Ox 11/28/20 12:27 36.5 C 80 19 129/75 97 11/28/20 08:23 36.7 C 76 19 128/80 95 11/28/20 07:15 77 11/28/20 04:12 36.8 C 76 18 118/70 97 (1) Chest pain Chest pain type: unspecified Qualified Code(s): R07.9 - Chest pain, unspecified (2) Anemia Anemia type: unspecified type Qualified Code(s): D64.9 - Anemia, unspecified
--- NOTE | 2020-11-28 13:23 | Hospitalist Progress Note ---
Date of Service November 28, 2020 Assessment & Plan (1) Chest pain: Mostly related to severe anemia Troponin x 3 negative EKG showed no acute ischemic changes Echo showed no LV wall motion abnormality with EF greater than 70 Cardiology on board and recommended to keep hgb above 10 Continue to hold aspirin Continue Metoprolol and statin Ok from cardiology standpoint to discharge home Follow up with cardiology in 1 month (2) Anemia, macrocytic: Symptomatic anemia Hgb on admission 6.1, then 8.8today Hemoccult was negative in the ER and denies any dark stool Last colonoscopy was about 2 years ago as per patient and was negative for li gnancy Status post transfusion with 3 unit PRBC during hospital course so far Continue to hold aspirin Continue monitor CBC Cardiology recommended to keep hgb above 10 Will need follow up with hematology If Hgb continues to drop, will consult hematology and gastro Repeat hgb at 2pm was 10.2 Will need outpatient follow up with hematology Check CBC in 1 week (3) Essential (primary) hypertension: Continue Lisinopril and metoprolol stable (4) Dyslipidemia: -Continue statin therapy (5) Chronic kidney disease, stage 3 unspecified: Creatinine 1.4 on admission, baseline of 1.2, Creatinine 1.06 today Avoid nephrotoxins agents Continue monitor BMP (6) DDD (degenerative disc disease), lumbar: DVT PPx: teds, scds, no chemical prophylaxis in the setting of severe anemia CODE: Full code Dispo Plan to discharge home today (7) Lumbar spinal stenosis: History of lumbar decompression fusion from L4-S1 done at [facility] in January 2019. Patient reports rarely taking ibuprofen for pain relief Pt was advised to avoid any NSAIDs Admission and Anticipated Discharge Date Admission Date: November 25, 2020 Subjective Pt was seen and examined for follow up of anemia Lying in chair with no distress Pt said that he feels great today He said that he has been walking around with no dizziness Denies any chest pain, palpitation, dizziness and SOB Review of Systems Review of Systems: All systems reviewed & are unremarkable except as noted in Subjective Physical Exam Physical Exam: General- No acute distress Head- atraumatic Eyes- PERRL, EOMI, ENT- oropharynx clear Neck- supple, no JVD Lungs- clear to auscultation Heart- regular rhythm; + murmur Abdomen- normal bowel sounds, soft, nontender Extremities- no calf tenderness Neuro- alert, oriented x 3; PERRL, EOMI; no facial palsy; no dysarthria Skin- warm & dry Results & Data Results & Data ([facility]) Vital Signs (Past 12 Hours) Vital Signs Temp Pulse Pulse Resp BP Pulse Ox 11/28/20 12:27 36.5 C 80 19 129/75 97 11/28/20 08:23 36.7 C 76 19 128/80 95 11/28/20 07:15 77 11/28/20 04:12 36.8 C 76 18 118/70 97 (1) Chest pain Chest pain type: unspecified Qualified Code(s): R07.9 - Chest pain, unspecified
[2020-11-28 14:45] LABS: Hemoglobin 10.2 g/dL (14.0-18.0)
--- NOTE | 2020-11-29 09:32 | Discharge Summary ---
Date of Service November 28, 2020 Admission HPI Per Admitting Provider This is a 70-year-old male with PMHx of HTN, HLD, CKD stage III, asthma, diverticulosis, spinal stenosis, degenerative disc disease, osteoarthritis who presents to the ER with acute chest pain over the last 2 weeks. 2 weeks ago he complained of a near syncopal event on a hot day at his granddaughter's birthday alliance party. He felt as if he was going to pass out but then he went into the house to cool down and felt somewhat better. In the past 2 weeks when he was exposed to warm weather again, he felt as if he was going to pass out. There was some mild associated shortness of breath at that time. Symptoms slowly resolved that day. Over the past 2 weeks he has noted progressive dyspnea on exertion with it associated chest burning. Discomfort and shortness of breath is now occurring with ADLs. Seen by his primary care physician yesterday where ECG was performed. No ischemic changes were noted. He was prescribed metoprolol succinate 25 mg and started yesterday. Chronically treated with aspirin and statin therapy. Today, patient experienced significant shortness of breath upon walking from the [employer] parking space into cardiology office at [facility]. His SOB required him to stop and sit down on his rolling walker 3 times. States that the exertional chest burning has improved with addition of beta-gabrielle therapy however dyspnea persists. Currently he denies any chest pain. Patient was sent to the ER based on his symptoms and was found to have a hemoglobin of 6.6. Heme negative on BRAXTON performed in the ER. He has been ordered 2 units of PRBCs. Admission Exam Per Admitting Provider General: awake, alert, no apparent distress, obese Head: Normocephalic, atraumatic ENT: PERRL, EOMI, +pale palpebral conjunctiva, pallor of pharynx, no pharyngeal exudate, mucous membranes moist Chest: Clear to auscultation, on room air, no adventitious breath sounds Cardiac: Regular rate and rhythm, no murmur, no JVD, normal peripheral pulses, good capillary refill Abdominal: NABS x 4 quadrants, soft, nondistended, nontender to palpation, no rebound or guarding Extremities: +pallor, few small areas over BUE of ecchymosis, otherwise normal inspection, no peripheral edema or erythema, calfs nontender to palpation Psych: Normal mood and affect Neuro: AAO x 3, strength intact bilaterally and rated 5/5, no motor deficits, speech is clear, no peripheral sensory deficits Principal Diagnosis Chest pain: Anemia Essential (primary) hypertension: Dyslipidemia: Chronic kidney disease, stage 3 unspecified: Discharge Exam General- No acute distress Head- atraumatic Eyes- PERRL, EOMI, ENT- oropharynx clear Neck- supple, no JVD Lungs- clear to auscultation Heart- regular rhythm; + murmur Abdomen- normal bowel sounds, soft, nontender Extremities- no calf tenderness Neuro- alert, oriented x 3; PERRL, EOMI; no facial palsy; no dysarthria Skin- warm & dry Discharge Data Allergies Allergy/AdvReac Type Severity Reaction Status Date / Time No Known Allergies Allergy Mild Verified 11/25/20 17:40 Consultations 11/25/20 17:31 ED Decision to Admit Stat 11/25/20 21:59 Consult Cardiology Routine Ordered Studies XR chest 1V portable HISTORY: Atypical Chest Pain COMPARISON: None. FINDINGS: No pneumothorax. No pleural effusions. No focal lung consolidations to suggest pneumonia. No evidence for pulmonary edema. The heart is normal in size. Small calcification within the left upper lobe may represent a pleural plaque. IMPRESSION: No acute process. ACT 112: Negative or not required by law. Electronically signed by: Kelton Cabrera M.D. 11/25/2020 4:46 PM Dictated: 11/25/20 1644Transcribed: 11/25/20 1644 Hospital Course (1) Chest pain: Mostly related to severe anemia Troponin x 3 negative EKG showed no acute ischemic changes Echo showed no LV wall motion abnormality with EF greater than 70 Cardiology on board and recommended to keep hgb above 10 Continue to hold aspirin Continue Metoprolol and statin Ok from cardiology standpoint to discharge home Follow up with cardiology in 1 month (2) Anemia, macrocytic: Symptomatic anemia Hgb on admission 6.1, then 8.8today Hemoccult was negative in the ER and denies any dark stool Last colonoscopy was about 2 years ago as per patient and was negative for malignancy Status post transfusion with 3 unit PRBC during hospital course so far Continue to hold aspirin Continue monitor CBC Cardiology recommended to keep hgb above 10 Will need follow up with hematology If Hgb continues to drop, will consult hematology and gastro Repeat hgb at 2pm was 10.2 Will need outpatient follow up with hematology Check CBC in 1 week (3) Essential (primary) hypertension: Continue Lisinopril and metoprolol stable (4) Dyslipidemia: -Continue statin therapy (5) Chronic kidney disease, stage 3 unspecified: Creatinine 1.4 on admission, baseline of 1.2, Creatinine 1.06 today Avoid nephrotoxins agents Continue monitor BMP (6) DDD (degenerative disc disease), lumbar: DVT PPx: teds, scds, no chemical prophylaxis in the setting of severe anemia CODE: Full code Dispo Plan to discharge home today (7) Lumbar spinal stenosis: History of lumbar decompression fusion from L4-S1 done at [facility] in January 2019. Patient reports rarely taking ibuprofen for pain relief Pt was advised to avoid any NSAIDs Total Time Total Time Spent Total Time Spent (In Minutes): 35 minutes Total Time Includes: Examination of the Patient, Discharge Planning, Medication Reconciliation, Communication With Other Providers and Other Discharge Plan Discharge Items Patient Disposition: Home - Self-Care Reason For Visit: ANEMIC Discharge Diagnosis: Chest pain: Anemia Essential (primary) hypertension: Dyslipidemia: Chronic kidney disease, stage 3 unspecified: Condition on Discharge: Good Activity: Resume your previous activity Non-emergency contact: Primary Care Provider and Enrollment Management Manager Call non-emergency contact if: you have any medication questions Follow-up/Referrals: David Garcia MD [Primary Care Provider] - Diet: Heart Healthy Addtl Attending Provider Instructions: follow up with your primary care provider within 1 week (please call to schedule for the appointment ) Follow up with your cardiology in 1 month (Please call to schedule for the appointment Check CBC in 1 week to monitor your hemoglobin If hemoglobin continues to drop, your provider will refer you to events specialist Continue to hold aspirin 81mg ( your provider or cardiology will advise you when to resume it) Avoid any NSAID such as Motrin, aleve, naproxen, advil, ibuprofen for now due to severe anemia Fall precaution Pending Studies at Discharge: No Stand-Alone Forms: My Game Blisters, Smoking Cessation Medications and DC Order Prescriptions: Continued colchicine 0.6 mg tablet 0.6 mg PO BID PRN (Reason: GOUT FLARE UPS) RF: 0 loratadine 10 mg tablet 10 mg PO DAILY RF: 0 acetaminophen 500 mg capsule 1,000 mg PO Q8H PRN (Reason: Pain) RF: 0 Flovent HFA 110 mcg/actuation HFA aerosol inhaler 2 puff inhalation BID RF: 0 gabapentin 400 mg capsule 400 mg PO TID RF: 0 triamcinolone acetonide 0.1 % cream 1 applic topical BID PRN (Reason: Skin Irritation) RF: 0 lisinopril 20 mg tablet 20 mg PO DAILY RF: 0 atorvastatin 40 mg tablet 40 mg PO HS RF: 0 allopurinol 100 mg tablet 200 mg PO DAILY RF: 0 hydrocortisone 2.5 % cream 1 applic topical BID PRN (Reason: Skin Irritation) RF: 0 cholecalciferol (vitamin D3) [Vitamin D3] 50 mcg (2,000 unit) Capsule 50 mcg PO DAILY RF: 0 albuterol sulfate 90 mcg/actuation HFA aerosol inhaler 1 puff INHALATION DIRECTED PRN (Reason: Shortness Of Breath) RF: 0 metoprolol succinate 25 mg tablet extended release 24 hr 25 mg PO DAILY RF: 0 Discontinued aspirin 81 mg tablet,chewable 81 mg PO DAILY RF: 0 Discharge Orders: Discharge Order (Routine); Ordered 11/28/20 Ordered By: Rosalinda Yuen Admission Data Admit Date/Time: 11/25/20 17:42 Attending Provider: Rosalinda Yuen Admit Provider: Zora uV Primary Care Provider: David Garcia Other Providers: Manjit Lloyd ; Catalino Valenzuela Other Interventions: Discharge Summary Assessment (RN) Last Done: 11/28/20 15:08
== END 2020-11-28 16:08 | disposition home or self-care (01) | DRG 812 ==
LOC: ED 15:42 → SUATTDRO 17:42 → 2S 17:42

== ENCOUNTER 2022-07-16 07:57 | Inpatient (IN) ==
--- NOTE | 2022-06-28 12:58 | PAT Medication Instructions ---
Medication Instructions Date of Service June 28, 2022 Home Medications acetaminophen 500 mg capsule 1,000 mg PO Q8H allopurinol 100 mg tablet 200 mg PO QDL atorvastatin 40 mg tablet 40 mg PO PM colchicine 0.6 mg tablet 0.6 mg PO BID PRN fluticasone propionate 110 mcg/actuation HFA aerosol inhaler (Flovent HFA) 2 puff inhalation BID gabapentin 400 mg capsule 400 mg PO TID lisinopril 20 mg tablet 20 mg PO QDL loratadine 10 mg tablet 10 mg PO QDL triamcinolone acetonide 0.1 % topical cream 1 applic topical BID PRN albuterol sulfate 90 mcg/actuation aerosol inhaler 1 puff inhalation DIRECTED PRN cholecalciferol (vitamin D3) 50 mcg (2,000 unit) capsule (Vitamin D3) 50 mcg PO QDL diclofenac sodium 1 % topical gel 2 g topical QID PRN glucosamine sulf dipot chlr,msm,chond 550 mg-C 30 mg-etienne 1 mg capsule (Glucosamine Chondroitin) 2 cap PO QPM cyanocobalamin (vitamin B-12) 500 mcg tablet 500 mcg PO QDL omeprazole 20 mg capsule,delayed release 20 mg PO QDL Continue as directed allopurinol 100 mg tablet 200 mg PO QDL omeprazole 20 mg capsule,delayed release 20 mg PO QDL ASK your surgeon for instructions colchicine 0.6 mg tablet 0.6 mg PO BID PRN STOP taking 2 weeks before surgery (or as soon as possible if surgery is within 2 weeks) glucosamine sulf dipot chlr,msm,chond 550 mg-C 30 mg-etienne 1 mg capsule (Gl ucosamine Chondroitin) 2 cap PO QPM STOP taking 24 hours before surgery triamcinolone acetonide 0.1 % topical cream 1 applic topical BID PRN diclofenac sodium 1 % topical gel 2 g topical QID PRN DO NOT take the morning of surgery lisinopril 20 mg tablet 20 mg PO QDL loratadine 10 mg tablet 10 mg PO QDL cholecalciferol (vitamin D3) 50 mcg (2,000 unit) capsule (Vitamin D3) 50 mcg PO QDL cyanocobalamin (vitamin B-12) 500 mcg tablet 500 mcg PO QDL Take morning of surgery With a small sip of water, OTHERWISE NOTHING TO EAT OR DRINK AFTER MIDNIGHT: acetaminophen 500 mg capsule 1,000 mg PO Q8H fluticasone propionate 110 mcg/actuation HFA aerosol inhaler (Flovent HFA) 2 puff inhalation BID gabapentin 400 mg capsule 400 mg PO TID albuterol sulfate 90 mcg/actuation aerosol inhaler 1 puff inhalation DIRECTED PRN(use if needed; please bring with you to hospital day of surgery if possible) Take evening before surgery acetaminophen 500 mg capsule 1,000 mg PO Q8H atorvastatin 40 mg tablet 40 mg PO PM fluticasone propionate 110 mcg/actuation HFA aerosol inhaler (Flovent HFA) 2 puff inhalation BID gabapentin 400 mg capsule 400 mg PO TID albuterol sulfate 90 mcg/actuation aerosol inhaler 1 puff inhalation DIRECTED PRN(if needed) Other Notes If you have any questions please call us at [phone] or [phone] or [phone] or [phone]
--- NOTE | 2022-07-02 09:56 | Anesthesiology Consultation ---
Date of Service July 02, 2022 Assessment & Plan (1) Encounter for pre-operative examination: Plan - awaiting surgeon ordered clearance. - type and screen: Nate with blood bank advised that upon review of current type and screen result as well as previous abnormal type and screen. He advised patient have repeat labs Saturday prior to Saturday surgery for repeat type and screen. Surgeon's office made aware. Pt aware to present to [facility] between 7am- noon 07/14/22 to have repeat testing. Pt verbalized full understanding and agreement, denied questions or concerns. Surgeon's office made aware. Chart Review Chart Review: Pending: Refer to Additional Notes / Consult section and Patient seen in Pre Admission Testing Teaching & Discussion Pre-Anesthesia Teaching/Discussion Notes: Instructed NPO after midnight before surgery, except medications with 15 cc of water. Medication instructions provided according to the PAT guidelines. History Surgery Operation Date: 07/16/22 10:05 Proposed Procedures p L2-L4 Decompression and Fusion, L4-S1 Hardware Removal, Spinal Cord Monitoring - Clarke Gil, Height/Weight Height: 5 ft 6 in Weight: 99.8 kg Allergies Allergy/AdvReac Type Severity Reaction Status Date / Time latex Allergy Unknown HIVES, Verified 06/25/22 14:44 RASH-WITH POWDER WITH LATEX GLOVES nickel Allergy Unknown Rash Verified 06/25/22 14:44 Medications Home Medications Medication Instructions Recorded Confirmed Last Taken acetaminophen 500 mg capsule 1,000 mg PO Q8H 09/01/20 06/25/22 01/10/21 08:00 allopurinol 100 mg tablet 200 mg PO QDL 09/01/20 06/25/22 01/10/21 22:00 atorvastatin 40 mg tablet 40 mg PO PM 09/01/20 06/25/22 01/10/21 22:00 colchicine 0.6 mg tablet 0.6 mg PO BID PRN GOUT FLARE UPS 09/01/20 06/25/22 Unknown fluticasone propionate 110 2 puff inhalation BID 09/01/20 06/25/22 11/25/20 08:00 mcg/actuation HFA aerosol inhaler (Flovent HFA) gabapentin 400 mg capsule 400 mg PO TID 09/01/20 06/25/22 01/10/21 22:00 lisinopril 20 mg tablet 20 mg PO QDL 09/01/20 06/25/2221 22:00 loratadine 10 mg tablet 10 mg PO QDL 09/01/20 06/25/22 01/10/21 22:00 triamcinolone acetonide 0.1 % 1 applic topical BID PRN Skin 09/01/20 06/25/22 01/10/21 08:00 topical cream Irritation albuterol sulfate 90 mcg/actuation 1 puff inhalation DIRECTED PRN 11/25/20 06/25/22 Unknown aerosol inhaler Shortness Of Breath cholecalciferol (vitamin D3) 50 2,000 mcg PO QDL 11/25/20 07/02/22 01/10/21 22:00 mcg (2,000 unit) capsule (Vitamin D3) diclofenac sodium 1 % topical gel 2 g topical QID PRN Pain 01/03/21 06/25/22 01/10/21 22:00 glucosamine sulf dipot 2 cap PO QPM 01/03/21 06/25/22 01/10/21 22:00 chlr,msm,chond 550 mg-C 30 mg-etienne 1 mg capsule (Glucosamine Chondroitin) cyanocobalamin (vitamin B-12) 500 1,000 mcg PO QDL 06/25/22 07/02/22 Unknown mcg tablet omeprazole 20 mg capsule,delayed 20 mg PO QDL 06/25/22 06/25/22 Unknown release hydrocortisone 0.25 % topical cream applic topical PRN Rash 07/02/22 Unknown ketoconazole 2 % topical cream 1 applic topical DAILY PRN Rash 07/02/22 07/02/22 Unknown Past Medical History Medical History (Updated 07/02/22 @ 10:11 by Leia Szymanski PA-C) Anemia PROFOUND ANEMIA-DX'D 11/28/20 [facility]-RECEIVED 3 UNITS BLOOD > follows with Hematology with [facility]: per last office note 12/15 H/H stable. No current signs of hemolysis. Remains Direct Tina IgG positive. Vitamin B12 on low end of normal at 286 Chronic urticaria Diverticulosis of large intestine without perforation or abscess without bleeding hx GERD (gastroesophageal reflux disease) controlled, stable per pt History of blood transfusion 11/2020 3 units Hyperlipidemia Hypertension controlled, stable per pt Hypertensive kidney disease with chronic kidney disease stage III no specialist Mild persistent asthma, uncomplicated well controlled per pt, uses albuterol inhaler if planning to be more physically active Pulmonary hypertension PASP 39 mmHg on 11/2020 echo Patient denies h/o stroke, seizures, heart attack, heart failure, DM, or blood clots. Exercise / Class Metabolic Activity II 4-5 Yardwork/Stairs/Walk up hill (denies chest discomfort or shortness of breath with 1 FOS) Past Family History Family History Sister Family history of diabetes mellitus Mother Family history of diabetes mellitus Past Surgical History Surgical History (Updated 06/25/22 @ 14:47 by Carin Allen RN) H/O spinal fusion lumbar History of colonoscopy History of esophagogastroduodenoscopy (EGD) History of hand surgery RIGHT NERVE REPAIR S/P lumbar discectomy 1997 Past Anesthesia History No Hx of Anesthesia Complications and No Family Hx of Anesthesia Complications History of PONV No Hx of PONV and Hx of Motion Sickness Social History Smoking Status: Former smoker Do You Dip or Chew Tobacco: No Smoking End Date: 30 yrs ago Hx Alcohol Use: Yes Alcohol type: beer alcohol intake frequency: other Alcohol Intake Frequency Comment: 0-4 drinks per day, varies Hx Substance Use: No substance use type: does not use Review of Systems Snoring, denies witnessed apneas. Patient denies chest pain, shortness of breath, dyspnea on exertion, fever, chills, cough, wheezing, or palpitations. Physical Exam Vital Signs Vitals BP 128/79 P 74 TEMP 97.5 SP02 96% on RA RESP 17 Physical Full cervical extension range of motion without pain TMD 3.5 finger breadths Mallampati Score 2 Dentition: chipped left upper front tooth; denies loose teeth, caps/crowns, implants or bridges Lungs: normal respiratory effort. Clear throughout to auscultation, no adventitious breath sounds Cardiac: regular rate and rhythm, no murmurs noted Carotid arteries: negative bruit bilat Lab Results Anesthesia Preop Results Results Anesthesia Widget: WBC 7.64 K/ul (4.8-10.8) 07/02/22 Hgb 14.9 g/dl (14.0-18.0) 07/02/22 Hct 42.4 % (42.0-52.0) 07/02/22 Plt 260 K/uL (130-400) 07/02/22 Na 138 mmol/L (136-145) 07/02/22 K 4.5 mmol/L (3.5-5.1) 07/02/22 Cl 104 mmol/L (98-107) 07/02/22 CO2 25 mmol/L (21-32) 07/02/22 BUN 20 mg/dl (6-23) 07/02/22 Creat 1.18 mg/dl (0.6-1.4) 07/02/22 Glucose Level 113 mg/dl (70-99(Fasting)) H 07/02/22 PT 10.2 Seconds (9.0-12.0) 07/02/22 PTT 32.7 Seconds (21.0-31.0) H 07/02/22 INR 1.0 (0.9-1.1) 07/02/22 Urine Color Yellow 07/02/22 Urine Appearance Clear (Clear) 07/02/22 Urine pH 5.5 (4.5-7.5) 07/02/22 Urine Specific Minetto 1.010 (1.000-1.030) 07/02/22 Urine Protein Negative (Negative) 07/02/22 Urine Glucose (UA) Negative (Negative) 07/02/22 Urine Ketones Negative (Negative) 07/02/22 Urine Blood Negative (Negative) 07/02/22 Urine Nitrite Negative (Negative) 07/02/22 Urine Bilirubin Negative (Negative) 07/02/22 Urine Urobilinogen Negative (Negative) 07/02/22 Urine Leukocyte Esterase Negative (Negative) 07/02/22 Blood Type O Positive 07/02/22 Antibody Screen NEGATIVE 07/02/22 Testing Electrocardiogram Date: 07/02/22 NSR, rate 80 bpm Chest X-Ray Date: 07/02/22 Cardiomediastinal and hilar silhouettes are within normal limits. No pneumothorax, pleural effusion, airspace consolidation or overt pulmonary edema. Degenerative changes of the shoulders and spine. IMPRESSION: No acute process. Echocardiogram Date: 11/26/20 EF > 70% Mild cLVH Small underfilled LV chamber size No LV wall motion abnormalities Grade I diastolic dysfunction Poorly visualized valvular structures without significant stenosis or regurgitation by Doppler Pulmonary hypertension is present with PASP 39 mmHg COVID-19 Risk Screen Screening Information COVID-19 Screen Date: 07/02/22 Exposure 21 Days Family/Household +COVID Last 21 Days: No Exposure 10 Days Any COVID Exposure Last 10 Days: No Symptoms Last 10 Days Experienced COVID Sx Last 10 Days: No + COVID 0-90 Days COVID + in Last 0-90 Days: No
[~2022-07-16 07:57] MED LIST: ACETAMINOPHEN 500 MG TAB PO SCH; CeleBREX 200 MG CAP PO SCH; GABAPENTIN 300 MG CAP PO SCH; ceFAZolin 2000MG 2,000 MG/15 ML SYR IV SCH
[2022-07-16] MEDS ORDERED: GLYCOPYRROLATE 0.2 MG/ML VIAL ONE (09:06)
[2022-07-16] MEDS ORDERED: PROPOFOL IV EMULSION 10 MG/ML 20 ML VIAL IV ONE (09:06)
[2022-07-16] MEDS ORDERED: NEOSTIGMINE METHYLSULFATE 1 MG/ML 10ML VIAL ONE (09:06)
[2022-07-16] MEDS ORDERED: DEXAMETHASONE SOD INJ 4 MG/ML VIAL ONE (09:06)
[2022-07-16] MEDS ORDERED: MIDAZOLAM HCL 1 MG/ML 2ML VIAL ONE (09:06)
[2022-07-16] MEDS ORDERED: ONDANSETRON INJ 2 MG/ML 2 ML VIAL ONE (09:06)
[2022-07-16] MEDS ORDERED: fentaNYL citrate 100 MCG/2 ML VIAL ONE ×2 (09:07→12:21)
--- NOTE | 2022-07-16 10:00 | History & Physical Bridge Note ---
Date of Service July 16, 2022 History & Physical Bridge Note I have examined the patient, reviewed the History & Physical and in the interval since the performance of the History & Physical I have noted the following changes of clinical significance: no changes noted
--- NOTE | 2022-07-16 10:01 | History & Physical Report ---
Date of Service July 16, 2022 Assessment & Plan (1) Neurogenic claudication due to lumbar spinal stenosis: Plan: L2-L4 decompression and fusion, L4-S1 hardware removal History of Present Illness Chief Complaint: Back and leg pain Primary Care Provider: David Garcia MD This is a 72-year-old male who presents with chronic persistent back and leg pain after failing course of nonoperative care is here for surgical invention. Allergies Allergy/AdvReac Type Severity Reaction Status Date / Time latex Allergy Unknown HIVES, Verified 07/16/22 08:15 RASH-WITH POWDER WITH LATEX GLOVES nickel Allergy Unknown Rash Verified 07/16/22 08:15 Home Medications Medication Instructions Recorded Confirmed Type acetaminophen 500 mg capsule 1,000 mg PO Q8H 09/01/20 07/16/22 History allopurinol 100 mg tablet 200 mg PO QDL 09/01/20 07/16/22 History atorvastatin 40 mg tablet 40 mg PO PM 09/01/20 07/16/22 History colchicine 0.6 mg tablet 0.6 mg PO BID PRN GOUT FLARE UPS 09/01/20 07/16/22 History fluticasone propionate 110 2 puff inhalation BID 09/01/20 07/16/22 History mcg/actuation HFA aerosol inhaler (Flovent HFA) gabapentin 400 mg capsule 400 mg PO TID 09/01/20 07/16/22 History lisinopril 20 mg tablet 20 mg PO QDL 09/01/20 07/16/22 History loratadine 10 mg tablet 10 mg PO QDL 09/01/20 07/16/22 History triamcinolone acetonide 0.1 % 1 applic topical BID PRN Skin 09/01/20 07/16/22 History topical cream Irritation albuterol sulfate 90 mcg/actuation 1 puff inhalation DIRECTED PRN 11/25/20 07/16/22 History aerosol inhaler Shortness Of Breath cholecalciferol (vitamin D3) 50 2,000 mcg PO QDL 11/25/20 07/16/22 History mcg (2,000 unit) capsule (Vitamin D3) diclofenac sodium 1 % topical gel 2 g topical QID PRN Pain 01/03/21 07/16/22 History glucosamine sulf dipot 2 cap PO QPM 01/03/21 07/16/22 History chlr,msm,chond 550 mg-C 30 mg-etinene 1 mg capsule (Glucosamine Chondroitin) cyanocobalamin (vitamin B-12) 500 1,000 mcg PO QDL 06/25/22 07/16/22 History mcg tablet omeprazole 20 mg capsule,delayed 20 mg PO QDL 06/25/22 07/16/22 History release hydrocortisone 0.25 % topical cream applic topical PRN Rash 07/02/22 History Past Med/Surg History Medical History (Updated 07/16/22 @ 10:01 by Clarke Gil DO) Anemia PROFOUND ANEMIA-DX'D 11/28/20 [facility]-RECEIVED 3 UNITS BLOOD > follows with Hematology with [facility]: per last office note 12/15 H/H stable. No current signs of hemolysis. Remains Direct Tina IgG positive. Vitamin B12 on low end of normal at 286 Chronic urticaria Diverticulosis of large intestine without perforation or abscess without bleeding hx GERD (gastroesophageal reflux disease) controlled, stable per pt History of blood transfusion 11/2020 3 units Hyperlipidemia Hypertension controlled, stable per pt Hypertensive kidney disease with chronic kidney disease stage III no specialist Mild persistent asthma, uncomplicated well controlled per pt, uses albuterol inhaler if planning to be more physically active Pulmonary hypertension PASP 39 mmHg on 11/2020 echo Surgical History H/O spinal fusion lumbar History of colonoscopy History of esophagogastroduodenoscopy (EGD) History of hand surgery RIGHT NERVE REPAIR S/P lumbar discectomy 1997 Family History Sister Family history of diabetes mellitus Mother Family history of diabetes mellitus Social History (Updated 07/16/22 @ 08:24 by Kelly Larkin, EDGARDO) Smoking Status: Former smoker Smoking End Date: 30 yrs ago; Second Hand Exposure: No; Do You Dip or Chew Tobacco: No; Tobacco Cessation Education Requested by Patient: No Hx Alcohol Use: Yes (2 days ago 3 beers) Alcohol type: beer Hx Substance Use: No Preferred Language: Nepali Communication Ability: Effective Records Management Manager Required: No Beliefs That Will Affect Care: None Current Living Situation: Spouse current occupational status: retired Other Information That Helps Us Care for You: No Feels Safe at Home: Yes Safety Concerns: Feels Safe At This Time Assistive Devices: Cane, Glasses and Walker Physical Exam Physical Exam: Patient is alert and oriented Heart regular rhythm Lungs clear Results & Data Results & Data ([facility]) Vital Signs (Past 12 Hours) Vital Signs Temp Pulse Resp BP Pulse Ox O2 Del Method 07/16/22 08:39 36.6 C 78 20 143/82 H 95 Room Air 07/16/22 08:39 Room Air
[2022-07-16] MEDS ORDERED: BUPIVACAINE/EPINEPHRINE 0.25% 1:200,000 30 ML VIAL ONE (10:19)
[2022-07-16] MEDS ORDERED: ceFAZolin 330 MG/ML 1 GM VIAL ONE (10:19)
[2022-07-16] MEDS ORDERED: ROCURONIUM BROMIDE 10 MG/ML 5 ML VIAL IV ONE ×2 (11:53→12:58)
[2022-07-16] MEDS ORDERED: FLOSEAL HEMOSTATIC MATRIX 10ML TOP ONE (12:56)
[2022-07-16] MEDS ORDERED: SUGAMMADEX SODIUM 200 MG/2 ML VIAL IV ONE (12:59)
--- NOTE | 2022-07-16 13:09 | Operative Report ---
Post Operative Report Pre & Post Diagnosis Operation Date: 07/16/22 09:35 Pre-Op Diagnosis: Neurogenic claudication due to lumbar spinal stenosis L2-L4 Post-Op Diagnosis: Neurogenic claudication due to lumbar spinal stenosis L2-L4 I identified the patient and participated in the time-out.: Yes Procedure Operation Date: 07/16/22 09:35 Actual Procedures #1 removal of posterior instrumentation L4-L5 L5-S1. #2 exploration of fusion L4-L5 L5-S1. #3 revision decompression bilaterally facetectomies and foraminotomies L1-L2, L2-L3 and L3-L4. #4 posterior spinal fusion L2-L4. #5 placement of posterior instrumentation L2-L5. #6 interbody fusion L2-L3 L3-L4. #7 placement of Spira 10 x 26 mm at L4-L3 and 12 x 26 mm at L3-L4. #8 placement locally harvested morselized autograft in the posterior gutters. #9 placement of I factor combined with V toss in the interbody space and posterior lateral gutters. Surgeon Clarke Gil, DO Dough Raiser Ajay Marti Estimated Blood Loss 250 Findings See Below The patient is 5 foot 6 weighing over 9 kg with a BMI in excess of 35. Patient's body habitus did contribute to significant technical difficulty required deeper retractors and longer instruments in order to perform his procedure. This at least 50% increased to the operative time. Specimens None Indications This is a 72-year-old male who presents above-mentioned diagnosis after failing course of nonoperative care is here for surgical invention. Description of Procedure Patient was met with identified informed consent obtained. Patient was then taken to the operative suite underwent patient placed in a prone position the [facility] top Sravan frame. All bony promises well-padded eyes inspected to ensure no external pressure placed upon them. This point the lumbar spine was prepped and draped in normal sterile fashion. Sharp dissection with the assistance of Bovie cautery was performed down to and exposing the lamina and transverse processes of L2-L3 and instrumentation at L4-L5 and S1 levels bilaterally. And then proceeded move the hardware bilaterally explore the fusion mass noting it to be mature and intact. Then performed a revision complete laminectomy of L3 L2 and partial laminectomy of L1 including bilateral medial facetectomies and foraminotomies addressing severe spinal stenosis and neural compression. Pedicle screws were then placed in L2-L3 L4-5 bilaterally with the assistance of fluoroscopy and the properly sized arsh placed. Bilateral transforaminal approach on the left pleat discectomy of L3-L4 was performed endplates curetted to subcortical bleeding bone and a 12 x 26 mm Spira cage with I factor tapped into position. I then proceeded to L2-L3 and again by way of a transforaminal approach on the left complete discectomy performed endplates curetted to subcortical bleeding bone and the 10 x 22 mm Spira cage with I factor tapped in position. The rods were then locked into final position bilaterally. The transverse processes of L2-L3-L4 were then burred to subcortically bone. I factor combined with the test and locally harvested morselized autograft was placed in the posterior gutters. 15 round JA drain inserted. The incision was then closed with 1 Vicryl the fascia 2-0 Vicryl subcutaneously and 4 Monocryl for final skin closure. Steri-Strip sterile dressings placed. Patient waken taken to PACU in stable condition. Please note spinal cord monitoring was utilized at the procedure no changes noted. Lastly Ajay Marti was present throughout the entire procedure involved the patient positioning complex portions of the surgery and final skin closure. I attest to the content of the Intraoperative Record and any orders documented therein. Any exceptions are noted below.
--- NOTE | 2022-07-16 13:17 | Fluoroscopy Report ---
FL lumbar spine 2-3V CLINICAL HISTORY: L2-4 D/F, L4-S1 HARDWARE REMOVAL COMPARISON STUDY: None. FLUOROSCOPY TIME: 20 seconds FLUOROSCOPY IMAGES: 3 EXPOSURE DOSE: Ka, r = 19.4 6mGy FINDINGS: Posterior decompression and fusion from approximately L2-L5 with pedicle screws and rods. T he hardware appears intact. Disc spacers are placed. IMPRESSION: Fluoroscopic assistance as above. ACT 112: Negative or not required by law. Electronically signed by: Kelton Cabrera M.D. 07/16/2022 1:16 PM
[2022-07-16] MEDS ORDERED: ATROPINE SULFATE 0.1 MG/ML 10ML SYR IV PRN (13:47)
[2022-07-16] MEDS ORDERED: ePHEDrine sulfate 50 MG/ML AMP IV PRN (13:47)
[2022-07-16] MEDS ORDERED: HYDROmorphone INJ 2 MG/ML SYR/VIAL IV PRN (13:47)
[2022-07-16] MEDS ORDERED: ONDANSETRON INJ 2 MG/ML 2 ML VIAL IV PRN ×2 (13:47→14:49)
[2022-07-16] MEDS: fentaNYL citrate 100 MCG/2 ML VIAL IV PRN ×4 (13:52→14:10)
--- NOTE | 2022-07-16 14:31 | Anesthesiology Progress Note ---
Date of Service July 16, 2022 Anesthesia Post Procedure Vital Signs Vital Signs: Temp Pulse Pulse Resp BP BP Pulse Ox 07/16/22 14:10 97.3 F L 87 15 135/73 93 07/16/22 14:00 96 H 12 126/77 95 07/16/22 13:50 92 H 12 152/80 H 95 07/16/22 13:40 94 H 12 133/87 96 07/16/22 13:34 96.8 F L 107 H 12 151/79 H 95 07/16/22 08:39 97.9 F 78 20 143/82 H 95 07/16/22 08:39 O2 Del Method O2 Flow Rate 07/16/22 14:10 Nasal Cannula 3 07/16/22 14:00 Nasal Cannula 3 07/16/22 13:50 Oxymask 10 07/16/22 13:40 Oxymask 10 07/16/22 13:34 Oxymask 10 07/16/22 08:39 Room Air 07/16/22 08:39 Room Air Pain Intensity Bilateral Lower Back: Pain Intensity: 5 Transfer of Care Handoff Completed per policy Notes Mental Status: alert / awake / arousable and participated in evaluation Patient Amnestic to Procedure: Yes Nausea / Vomiting: adequately controlled Pain: adequately controlled and improving with treatment Airway Patency, RR, SpO2: stable & adequate BP & HR: stable & adequate Hydration State: stable & adequate Anesthetic Complications: no major complications apparent and Pt Satisfied with anesthetic care
[2022-07-16] MEDS ORDERED: PROMETHAZINE HCL 12.5 MG in SODIUM CHLORIDE 0.9% 50 ML IV PRN (14:49)
[2022-07-16] MEDS ORDERED: NALOXONE HCL 0.4 MG/1 ML VIAL/CARP IV PRN (14:49)
[2022-07-16] MEDS ORDERED: LORazepam 0.5 MG TAB PO PRN (14:49)
[2022-07-16] MEDS ORDERED: bisacodyL 10 MG SUPP PR PRN (14:49)
[2022-07-16] MEDS ORDERED: DO NOT ADMINISTER PNEUMOCOCCAL VACCINE PRN (14:49)
[2022-07-16] MEDS ORDERED: ONDANSETRON 4 MG OD TAB PO PRN (14:49)
[2022-07-16] MEDS ORDERED: DO NOT ADMINISTER FLU VACCINE PRN (14:49)
[2022-07-16] MEDS ORDERED: HYDROmorphone INJ 0.5 MG/0.5 ML SYR IV PRN (14:49)
[2022-07-16] MEDS ORDERED: ALBUTEROL HFA 8 GM INHALER INH PRN (14:49)
[2022-07-16] MEDS ORDERED: FAMOTIDINE 20 MG TAB PO PRN (14:49)
[2022-07-16] MEDS ORDERED: MAGNESIUM HYDROXIDE SUSP 30 ML UDC PO PRN (14:49)
[2022-07-16] MEDS ORDERED: diphenhydrAMINE Capsule 25 MG CAP PO PRN (14:49)
[2022-07-16] MEDS ORDERED: LORazepam 2 MG/1 ML VIAL IV PRN (14:49)
[2022-07-16] MEDS ORDERED: hydrOXYzine HCl 25 MG TAB PO PRN (14:49)
[2022-07-16] MEDS ORDERED: ALUMINUM/MAGNESIUM SUSP 30 ML UDC PO PRN (14:49)
[2022-07-16] MEDS ORDERED: ACETAMINOPHEN 1,000 MG/100 ML VIAL IV PRN (14:49)
[2022-07-16] MEDS ORDERED: METOCLOPRAMIDE HCL INJ 5 MG/ML 2 ML VIAL IV PRN (14:49)
[2022-07-16] MEDS ORDERED: ACETAMINOPHEN 500 MG TAB PO PRN (14:49)
[2022-07-16] MEDS ORDERED: SOD PHOSPHATE/SOD BIPHOSPHATE ENEMA 132 ML BTL PR PRN (14:49)
--- NOTE | 2022-07-16 15:18 | Consultation ---
Date of Consultation July 16, 2022 Assessment & Plan (1) Neurogenic claudication due to lumbar spinal stenosis: (2) Hypertension: (3) Hyperlipidemia: (4) Hypertensive kidney disease with chronic kidney disease stage III: Plan This is a 72-year-old male with significant past medical history of hypertension, hyperlipidemia, asthma, vitamin D deficiency, diverticulosis, CKD stage III, acquired hemolytic anemia, gout, pre diabetes who presented for elective lumbar procedure by Dr. Gil. He had a prior history of lumbar surgery with laminectomy in 1997 , fusion of low lumbar spine with laminectomy in 2019 and today underwent L2-L4 lumbar decompression fusion with L4-S1 hardware removal. Neurogenic claudication due to lumbar spinal stenosis s/p L2-L4 D/F and removal of hardware L4-S1 by Dr. Gil, POD #0 tolerated procedure well EBL 250ml pain/wound management per ortho activity and therapy as prescribed by ortho encourage incentive spirometry monitor hgb, pre op 14.9 Hypertension continue lisinopril Bp stable, parameters placed Hyperlipidemia continue statin CKD stage III monitor renal fxn avoid nephrotoxic agents pre op cr 1.2 Acquired hemolytic anemia history hx of such in October 2021, no noted trigger s/p transfusions, and prednisone therapy now resolved follows Dr. Casillas no further issue Gout continue allopurinol DVT prophylaxis: per primary Dispo:per primary PCP: David Garcia Full code Thank you for this consultation. We will follow the patient with you during their hospital stay. You can reach a member of the [facility] Hospitalist Team 17/12 via hospitalist role on tiger text. Patient was seen and examined in collaboration with, Dr. Diaz, please see addendum A total of [45] minutes were spent with greater than 50% of that time face to face with the patient, personally reviewing all current laboratories, imaging studies, past medication reconciliation, outpatient chart review, and discussion with specialists to collaborate care for the patient with attending. Please see attending documentation for corrections and/or additions. Supervising Physician Co-Signing Physician Notes Attending addendum The patient was seen and examined in medical floor He is a status post back surgery Pain is controlled and denies any other significant symptoms On examination No apparent distress at rest Hemodynamically stable Chest clear to auscultate bilaterally HeartS1, [id number] Abdomenbenign Extremitiestrace edema bilaterally His labs and imaging studies reviewed Status post back surgery remains stable with other comorbid condition as mentioned above Agree with assessment and plan as outlined above by Kelli Diaz History of Present Illness Requesting Physician: Dr. Gil Reason for Consultation: Post op medical management Attending Physician: Clarke Gil, DO History of Present Illness This is a 72-year-old male with significant past medical history of hypertension, hyperlipidemia, asthma, vitamin D deficiency, diverticulosis, CKD stage III, acquired hemolytic anemia, gout, pre diabetes who presented for elective lumbar procedure by Dr. Gil. He had a prior history of lumbar surgery with laminectomy in 1997 , fusion of low lumbar spine with laminectomy in 2019 and today underwent L2-L4 lumbar decompression fusion with L4-S1 hardware removal. Currently he feels well. He does have mild incisional pain. He recently took oxycodone. Pain currently 5 out of 10 without radicular symptoms. He denies any fever, chills, sweats, lightheadedness, dizziness, chest pain, shortness of breath, cough, URI symptoms, nausea, vomiting, abdominal pain. He denies any changes in bowel or urinary habits prior to surgery. Patient's outpatient medical [facility] in [facility] were reviewed. His medications were reconciled. He has history of hypertension controlled on lisinopril. He also has history of gout controlled on allopurinol and as needed colchicine. His last a1c was 6.1 and therefore is Pre diabetic. This was in 10/2021. In regards to patient's acquired hemolytic anemia he developed a significant drop in hemoglobin at 5.2 in November 2021 requiring blood transfusions. This was felt to be as a consequence of hemolytic anemia. There never was a found trigger for his hemolysis. He follows with [facility] hematology Dr. Casillas and has not had any further evidence of hemolysis since. Allergies Allergy/AdvReac Type Severity Reaction Status Date / Time latex Allergy Unknown HIVES, Verified 07/16/22 08:15 RASH-WITH POWDER WITH LATEX GLOVES nickel Allergy Unknown Rash Verified 07/16/22 08:15 Home Medications Medication Instructions Recorded Confirmed Type acetaminophen 500 mg capsule 1,000 mg PO Q8H 09/01/20 07/16/22 History allopurinol 100 mg tablet 200 mg PO QDL 09/01/20 07/16/22 History atorvastatin 40 mg tablet 40 mg PO PM 09/01/20 07/16/22 History colchicine 0.6 mg tablet 0.6 mg PO BID PRN GOUT FLARE UPS 09/01/20 07/16/22 History fluticasone propionate 110 2 puff inhalation BID 09/01/20 07/16/22 History mcg/actuation HFA aerosol inhaler (Flovent HFA) gabapentin 400 mg capsule 400 mg PO TID 09/01/20 07/16/22 History lisinopril 20 mg tablet 20 mg PO QDL 09/01/20 07/16/22 History loratadine 10 mg tablet 10 mg PO QDL 09/01/20 07/16/22 History triamcinolone acetonide 0.1 % 1 applic topical BID PRN Skin 09/01/20 07/16/22 History topical cream Irritation albuterol sulfate 90 mcg/actuation 1 puff inhalation DIRECTED PRN 11/25/20 07/16/22 History aerosol inhaler Shortness Of Breath cholecalciferol (vitamin D3) 50 2,000 mcg PO QDL 11/25/20 07/16/22 History mcg (2,000 unit) capsule (Vitamin D3) diclofenac sodium 1 % topical gel 2 g topical QID PRN Pain 01/03/21 07/16/22 History glucosamine sulf dipot 2 cap PO QPM 01/03/21 07/16/22 History chlr,msm,chond 550 mg-C 30 mg-etienne 1 mg capsule (Glucosamine Chondroitin) cyanocobalamin (vitamin B-12) 500 1,000 mcg PO QDL 06/25/22 07/16/22 History mcg tablet omeprazole 20 mg capsule,delayed 20 mg PO QDL 06/25/22 07/16/22 History release Patient History Medical History (Updated 07/16/22 @ 15:13 by Hanny Giordano PA-C) Anemia PROFOUND ANEMIA-DX'D 11/28/20 [facility]-RECEIVED 3 UNITS BLOOD > follows with Hematology with Victoriano Coffey: per last office note 12/15 H/H stable. No current signs of hemolysis. Remains Direct Tina IgG positive. Vitamin B12 on low end of normal at 286 Chronic urticaria Diverticulosis of large intestine without perforation or abscess without bleeding hx GERD (gastroesophageal reflux disease) controlled, stable per pt History of blood transfusion 11/2020 3 units Hyperlipidemia Hypertension controlled, stable per pt Hypertensive kidney disease with chronic kidney disease stage III no specialist Mild persistent asthma, uncomplicated well controlled per pt, uses albuterol inhaler if planning to be more physically active Pulmonary hypertension PASP 39 mmHg on 11/2020 echo Surgical History H/O spinal fusion lumbar History of colonoscopy History of esophagogastroduodenoscopy (EGD) History of hand surgery RIGHT NERVE REPAIR S/P lumbar discectomy 1997 Family History Sister Family history of diabetes mellitus Mother Family history of diabetes mellitus Social History Smoking Status: Former smoker Smoking End Date: 30 yrs ago; Second Hand Exposure: No; Do You Dip or Chew Tobacco: No; Tobacco Cessation Education Requested by Patient: No Hx Alcohol Use: Yes (2 days ago 3 beers) Alcohol type: beer Hx Substance Use: No Preferred Language: Amharic Communication Ability: Effective 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 Beliefs That Will Affect Care: None Current Living Situation: Spouse current occupational status: retired Other Information That Helps Us Care for You: No Feels Safe at Home: Yes Safety Concerns: Feels Safe At This Time Assistive Devices: Cane, Glasses and Walker Review of Systems Review of Systems: All systems reviewed & are unremarkable except as noted in HPI & below Physical Exam Physical Exam: Constitutional: WD/WN, vitals as above, NAD, sitting up in bed, pleasant, conversing easily Head: Normocephalic, Atraumatic Eyes: PERRL, conjunctivae normal, anicteric sclerae ENMT: external ear and nose normal, oropharynx normal Neck: trachea midline, no thyromegaly normal visual inspection Respiratory: normal respiratory effort, lungs clear to auscultation, no wheeze, rales, rhonchi. Normal insp/exp effort, no accessory muscle use Cardiovascular: RRR, no murmur, no edema Vessels: no JVD or carotid bruit Chest: normal inspection of chest Abdomen: normal bowel sounds, soft, nontender, no hepatosplenomegaly Musculoskeletal: no cyanosis or clubbing,Active range of motion x4, JA drain with serosanguineous drainage Skin: no rashes, warm and dry normal turgor Neurologic: PERRL, EOMI, accommodation nl, no face palsy, no dysarthria CN's II-XI intact bilaterally and moves all extremities Psychiatric: A+Ox3, euthymic affect Lymphatic: no cervical or axillary lymphadenopathy : [place] catheter draining yellow urine Results & Data ([facility]) Vital Signs (Past 12 Hours) Vital Signs Temp Pulse Pulse Resp BP BP Pulse Ox 07/16/22 14:10 36.3 C L 87 15 135/73 93 07/16/22 14:00 96 H 12 126/77 95 07/16/22 13:50 92 H 12 152/80 H 95 07/16/22 13:40 94 H 12 133/87 96 07/16/22 13:34 36.0 C L 107 H 12 151/79 H 95 07/16/22 08:39 36.6 C 78 20 143/82 H 95 07/16/22 08:39 O2 Del Method O2 Flow Rate 07/16/22 14:10 Nasal Cannula 3 07/16/22 14:00 Nasal Cannula 3 07/16/22 13:50 Oxymask 10 07/16/22 13:40 Oxymask 10 07/16/22 13:34 Oxymask 10 07/16/22 08:39 Room Air 07/16/22 08:39 Room Air Laboratory Results Pre Op labs 07/02/22 h/h 14.9 and 42.4 wbc 7.64 plt 260 Bun 20, r 1.18 UA negative Sars COVD 2 negative Diagnostic Findings Lumbar Spine X-Ray 07/16/22 09:35 FL lumbar spine 2-3V CLINICAL HISTORY: L2-4 D/F, L4-S1 HARDWARE REMOVAL COMPARISON STUDY: None. FLUOROSCOPY TIME: 20 seconds FLUOROSCOPY IMAGES: 3 EXPOSURE DOSE: Ka, r = 19.4 6mGy FINDINGS: Posterior decompression and fusion from approximately L2-L5 with pedicle screws and rods. The hardware appears intact. Disc spacers are placed. IMPRESSION: Fluoroscopic assistance as above. ACT 112: Negative or not required by law. Electronically signed by: Kelton Cabrera M.D. 07/16/2022 1:16 PM Medications Administered Current Inpatient Medications Acetaminophen (Acetaminophen 500 Mg Tab) 1,000 mg PO PREOP IRINA Stop: 07/16/22 18:00 Last Admin: 07/16/22 08:53 Dose: 1,000 mg Acetaminophen (Acetaminophen 500 Mg Tab) 1,000 mg PO Q8H PRN PRN Reason: MILD Pain Scale 1,2,3 & Pre PT Stop: 08/15/22 14:48 Al Hydrox/Mg Hydrox/Simethicone (Aluminum/Magnesium Susp 30 Ml Udc) 30 ml PO Q6H PRN PRN Reason: Dyspepsia Stop: 08/15/22 14:48 Albuterol (Albuterol Hfa 8 Gm Inhaler) 1 puffs INH DIRECTED PRN PRN Reason: Shortness Of Breath Stop: 08/15/22 14:48 Allopurinol (Allopurinol 100 Mg Tab) 200 mg PO QDL IRINA Stop: 08/16/22 11:29 Atorvastatin Calcium (Atorvastatin 40 Mg Tab) 40 mg PO PM IRINA Stop: 08/15/22 20:59 Atropine Sulfate (Atropine Sulfate 0.1 Mg/Ml 10ml Syr) 0.5 mg IV Q1M PRN PRN Reason: PACU Use-HR<40 &/or Bradycardi Stop: 07/16/22 21:47 Bisacodyl (Bisacodyl 10 Mg Supp) 10 mg OR DAILY PRN PRN Reason: Constipation Stop: 08/15/22 14:48 Celecoxib (Celebrex 200 Mg Cap) 200 mg PO PREOP IRINA Stop: 07/16/22 18:00 Last Admin: 07/16/22 08:53 Dose: 200 mg Diphenhydramine HCl (Diphenhydramine Capsule 25 Mg Cap) 25 mg PO Q6H PRN PRN Reason: Allergic Rhinitis/Insomnia Stop: 08/15/22 14:48 Ephedrine Sulfate (Ephedrine Sulfate 50 Mg/Ml Amp) 5 mg IV Q5M PRN PRN Reason: PACU Use Only-SBP<90 mmHg Stop: 07/16/22 21:47 Famotidine (Famotidine 20 Mg Tab) 20 mg PO Q12H PRN PRN Reason: Dyspepsia Stop: 08/15/22 14:48 Fentanyl Citrate (Fentanyl Citrate 100 Mcg/2 Ml Vial) 25 mcg IV Q5M PRN PRN Reason: PACU Use Only-Pain Stop: 07/16/22 21:47 Last Admin: 07/16/22 14:10 Dose: 25 mcg Fluticasone Propionate (Fluticasone Hfa 110mcg Inhaler) 2 puffs INH BID IRINA Stop: 08/15/22 20:59 Gabapentin (Gabapentin 300 Mg Cap) 300 mg PO PREOP IRINA Stop: 07/16/22 18:00 Last Admin: 07/16/22 08:53 Dose: 300 mg Gabapentin (Gabapentin 400 Mg Cap) 400 mg PO TID IRINA Stop: 08/15/22 14:48 Hydromorphone HCl (Hydromorphone Inj 2 Mg/Ml Syr/Vial) 0.5 mg IV Q5M PRN PRN Reason: PACU Use Only-Pain Stop: 07/16/22 21:47 Hydromorphone HCl (Hydromorphone Inj 0.5 Mg/0.5 Ml Syr) 0.5 mg IV Q3H PRN PRN Reason: MODERATE Pain (Scale 4,5,6) & Pre PT Stop: 07/30/22 14:48 Hydroxyzine HCl (Hydroxyzine Hcl 25 Mg Tab) 25 mg PO Q8H PRN PRN Reason: Anxiety Stop: 08/15/22 14:48 Lactated Ringer's (Lr) 1,000 mls @ 15 mls/hr IV .Q24H IRINA Stop: 07/18/22 05:59 Last Infusion: 07/16/22 10:34 Dose: Infused Cefazolin Sodium (Ancef 2000mg) 2,000 mg in 15 mls @ 3.75 mls/min IV PREOP IRINA; Protocol Stop: 07/16/22 18:00 Last Admin: 07/16/22 10:34 Dose: 3.75 mls/min Lactated Ringer's (Lr) 1,000 mls @ 150 mls/hr IV .Q6H40M IRINA Stop: 08/15/22 14:48 Promethazine HCl 12.5 mg/ (Sodium Chloride) 50.5 mls @ 202 mls/hr IV Q6H PRN PRN Reason: Nausea &/or Vomiting Stop: 08/15/22 14:48 Acetaminophen (Ofirmev) 1,000 mg in 100 mls @ 400 mls/hr IV Q8H PRN PRN Reason: Pain Rating 1-3 & Pre PT Stop: 07/17/22 14:50 Cefazolin Sodium (Ancef 2000mg) 2,000 mg in 15 mls @ 3.75 mls/min IV Q8H [facility]; Protocol Stop: 07/17/22 03:18 Dexamethasone 6 mg/ Syringe 1.5 mls @ 1 mls/min IV DAILY [facility] Stop: 07/19/22 09:02 Influenza Virus Vaccine Quadrival (Do Not Administer Flu Vaccine) 1 each N/A PRN PRN PRN Reason: Notification Stop: 08/15/22 14:48 Lisinopril (Lisinopril 20 Mg Tab) 20 mg PO QDL [facility] Stop: 08/16/22 11:29 Loratadine (Loratadine 10 Mg Tab) 10 mg PO QDL [facility] Stop: 08/16/22 11:29 Lorazepam (Lorazepam 0.5 Mg Tab) 0.5 mg PO Q8H PRN PRN Reason: Sedation/Anxiety Stop: 08/15/22 14:48 Lorazepam (Lorazepam 2 Mg/1 Ml Vial) 0.5 mg IV Q8H PRN PRN Reason: Sedation/Anxiety Stop: 08/15/22 14:48 Magnesium Hydroxide (Magnesium Hydroxide Susp 30 Ml Udc) 30 ml PO Q24H PRN PRN Reason: Constipation Stop: 08/15/22 14:48 Metoclopramide HCl (Metoclopramide Hcl Inj 5 Mg/Ml 2 Ml Vial) 10 mg IV Q6H PRN PRN Reason: Nausea &/or Vomiting Stop: 08/15/22 14:48 Naloxone HCl (Naloxone Hcl 0.4 Mg/1 Ml Vial/Carp) 0.1 mg IV Q5M PRN PRN Reason: Oversedation/Resp depression Stop: 08/15/22 14:48 Ondansetron HCl (Ondansetron Inj 2 Mg/Ml 2 Ml Vial) 4 mg IV ONCE PRN PRN Reason: PACU Use Only-Nausea/Vomiting Stop: 07/16/22 21:47 Ondansetron HCl (Ondansetron Inj 2 Mg/Ml 2 Ml Vial) 4 mg IV Q6H PRN PRN Reason: Nausea &/or Vomiting Stop: 08/15/22 14:48 Ondansetron HCl (Ondansetron 4 Mg Od Tab) 4 mg PO Q6H PRN PRN Reason: Nausea Stop: 08/15/22 14:48 Oxycodone HCl (Oxycodone Hcl Ir 5 Mg Tab (Immediate Release)) 5 - 10 mg PO Q4H PRN PRN Reason: Pain & Pre PT Stop: 07/30/22 14:48 Pantoprazole Sodium (Pantoprazole 40 Mg Tab) 40 mg PO QDL IRINA Stop: 08/16/22 11:29 Pneumococcal Polyvalent Vaccine (Do Not Administer Pneumococcal Vaccine) 1 each N/A PRN PRN PRN Reason: Notification Stop: 08/15/22 14:48 Polyethylene Glycol (Polyethylene (Miralax) 17 Gm Pack) 17 gm PO Q6 IRINA Stop: 08/16/22 05:59 Senna/Docusate Sodium (Docusate Sodium/Senna 50/8.6mg Tab) 2 tab PO HS IRINA Stop: 08/15/22 20:59 Sodium Biphosphate/Sodium Phosphate (Sod Phosphate/Sod Biphosphate Enema 132 Ml Btl) 132 ml OR ONE PRN PRN Reason: Constipation Stop: 08/15/22 14:48 Tramadol HCl (Tramadol Hcl 50 Mg Tablet) 50 - 100 mg PO Q4H PRN PRN Reason: Moderate-Severe pain & Pre PT Stop: 08/15/22 14:48 Vitamin D (Cholecalciferol 1,000 Units 25 Mcg Tab) 2,000 units PO QDL IRINA Stop: 08/16/22 11:29 ECG Rate (beats per minute): 80 Rhythm: normal sinus
[2022-07-16] MEDS: oxyCODONE HCL IR 5 MG TAB (IMMEDIATE RELEASE) PO PRN ×2 (15:22→19:58)
[2022-07-16] MEDS: LACTATED RINGER'S 1,000 ML IV SCH ×2 (15:23→22:07)
[2022-07-16] MEDS: GABAPENTIN 400 MG CAP PO SCH ×2 (16:16→21:22)
[2022-07-16] MEDS: FLUTICASONE FUROATE 200MCG 14 PUFFS/INHALER INH SCH (16:17)
[2022-07-16] MEDS: traMADol HCL 50 MG TABLET PO PRN (16:20)
[2022-07-16] MEDS: DOCUSATE SODIUM/SENNA 50/8.6MG TAB PO SCH (19:58)
[2022-07-16] MEDS: ATORVASTATIN 40 MG TAB PO SCH (19:58)
[2022-07-16] MEDS: ceFAZolin 2000MG 2,000 MG/15 ML SYR IV SCH (20:01)
[2022-07-16] MEDS ORDERED: FLUTICASONE HFA 110MCG INHALER INH SCH (21:00)
[2022-07-17] MEDS: oxyCODONE HCL IR 5 MG TAB (IMMEDIATE RELEASE) PO PRN ×2 (00:40→05:09)
[2022-07-17] MEDS: ceFAZolin 2000MG 2,000 MG/15 ML SYR IV SCH (02:15)
[2022-07-17] MEDS: LACTATED RINGER'S 1,000 ML IV SCH ×2 (04:07→10:28)
[2022-07-17] MEDS: POLYETHYLENE (MIRALAX) 17 GM PACK PO SCH ×3 (05:48→17:08)
[2022-07-17] MEDS ORDERED: LR 15ML/HR IV SCH (06:00)
[2022-07-17 06:31] LABS: Basophils # (auto) 0.01 K/uL (0-0.2); Basophils % (auto) 0.1 %; Hematocrit (blood only) 33.4 % (42.0-52.0); Hemoglobin 11.4 g/dl (14.0-18.0); Immature Granulocytes # (auto) 0.09 K/uL (0.01-0.20); Immature Granulocytes % (auto) 0.7 %; Lymphocytes # (auto) 2.24 K/uL (1.2-3.4); Lymphocytes % (auto) 17.4 %; Mean Corpuscular Hemoglobin 32.8 pg (25.0-34.0); Mean Corpuscular Hgb Conc 34.1 g/dL (32.0-36.0); Monocytes # (auto) 0.96 K/uL (0.11-0.59); Monocytes % (auto) 7.5 %; Neutrophils # (auto) 9.55 K/uL (1.40-6.50); Neutrophils % (auto) 74.3 %; Platelet Count 288 K/uL (130-400); RDW Standard Deviation 45.7 fL (36.4-46.3); Red Blood Count 3.48 M/uL (4.70-6.10); White Blood Count 12.85 K/ul (4.8-10.8)
[2022-07-17 06:50] LABS: BUN Creatinine Ratio 17.9 (10-20); Calcium 8.3 mg/dl (8.5-10.1); Creatinine Clr Calc Pharmacy 60.8 ml/min; Est GFR (Non-African American) 58.7 ml/min; Potassium 4.3 mmol/L (3.5-5.1)
[2022-07-17] MEDS: GABAPENTIN 400 MG CAP PO SCH ×3 (07:57→20:14)
[2022-07-17] MEDS: dexAMETHasone 6 MG in SYRINGE 0 ML IV SCH (08:00)
[2022-07-17] MEDS: FLUTICASONE FUROATE 200MCG 14 PUFFS/INHALER INH SCH (08:00)
--- NOTE | 2022-07-17 08:50 | Orthopedic Progress Note ---
Date of Service July 17, 2022 Assessment & Plan (1) Neurogenic claudication due to lumbar spinal stenosis: Plan: At this time initiate physical therapy monitor his JA operatively discharge home in next few days. Admission and Anticipated Discharge Date Admission Date: July 16, 2022 Subjective Back pain controlled leg symptoms improved Physical Exam Physical Exam: Patient is in the chair at the bedside. Has good strength testing. Appears comfortable. Results & Data ([facility]) Vital Signs (Past 12 Hours) Vital Signs Temp Pulse Resp BP Pulse Ox O2 Del Method 07/17/22 07:11 36.5 C 79 16 97/63 L 97 Room Air 07/17/22 03:15 36.7 C 87 17 109/63 94 Room Air 07/17/22 01:00 36.8 C 86 18 128/72 98 Room Air 07/16/22 21:19 36.6 C 89 16 121/68 95 Room Air
[2022-07-17] MEDS ORDERED: FLUTICASONE FUROATE 200MCG 14 PUFFS/INHALER INH SCH (09:00)
--- NOTE | 2022-07-17 10:14 | Hospitalist Progress Note ---
Date of Service July 17, 2022 Assessment & Plan (1) Neurogenic claudication due to lumbar spinal stenosis: (2) Hypertension: (3) Hyperlipidemia: (4) Hypertensive kidney disease with chronic kidney disease stage III: Plan This is a 72-year-old male with significant past medical history of hypertension, hyperlipidemia, asthma, vitamin D deficiency, diverticulosis, CKD stage III, acquired hemolytic anemia, gout, pre diabetes who presented for elective lumbar procedure by Dr. Gil. He had a prior history of lumbar surgery with laminectomy in 1997 , fusion of low lumbar spine with laminectomy in 2019 and today underwent L2-L4 lumbar decompression fusion with L4-S1 wong dware removal. Neurogenic claudication due to lumbar spinal stenosis s/p L2-L4 D/F and removal of hardware L4-S1 by Dr. Gil, POD #1 tolerated procedure well pain/wound management per ortho activity and therapy as prescribed by ortho encourage incentive spirometry monitor hgb, pre op 14.9 -> post-op Hgb 11.4 (post-op blood loss anemia, expected, no need for blood transfusion) -continue to monitor H&H Hypertension continue lisinopril Bp stable, parameters placed Hyperlipidemia continue statin CKD stage III monitor renal fxn avoid nephrotoxic agents pre op cr 1.2 Acquired hemolytic anemia history hx of such in October 2021, no noted trigger s/p transfusions, and prednisone therapy now resolved follows Dr. Casillas no further issue Gout continue allopurinol DVT prophylaxis: per primary Dispo:per primary PCP: Dr. David Garcia Full code Thank you for this consultation. We will follow the patient with you during their hospital stay. You can reach a member of the [facility] Hospitalist Team 17/12 via hospitalist role on tiger text. Admission and Anticipated Discharge Date Admission Date: July 16, 2022 Subjective Pt seen in follow up after back surgery yesterday Currently sitting up in chair, in no acute distress. Denies any significant pain. No chest pain shortness of breath fevers chills, no abdominal pain Reports he has been ambulating No BM yet, however passing flatus. He has a [place] catheter placed. Review of Systems Review of Systems: All systems reviewed & are unremarkable except as noted in Subjective Physical Exam Physical Exam: Constitutional: WD/WN, sitting up in chair, in NAD Head: Normocephalic, Atraumatic Eyes: PERRL, EOMI. conjunctivae normal, anicteric sclerae ENMT: external ear and nose normal, oropharynx normal Neck: normal visual inspection Respiratory: normal respiratory effort, lungs clear to auscultation, no wheeze, rales, rhonchi. Cardiovascular: RRR, no murmur, no edema Chest: normal inspection of chest Abdomen: normal bowel sounds, soft, nontender, +obese Musculoskeletal:moves extremities, JA drain with serosanguineous drainage Skin: no rashes, warm and dry normal turgor Neurologic: PERRL, EOMI, no face palsy, speech fluent, moves all extremities Psychiatric: A+Ox3, euthymic affect Results & Data Results & Data ([facility]) Vital Signs (Past 12 Hours) Vital Signs Temp Pulse Resp BP Pulse Ox O2 Del Method 07/17/22 07:11 36.5 C 79 16 97/63 L 97 Room Air 07/17/22 03:15 36.7 C 87 17 109/63 94 Room Air 07/17/22 01:00 36.8 C 86 18 128/72 98 Room Air Laboratory Results 07/17/22 07/17/22 Range/Units 06:14 06:14 WBC 12.85 H (4.8-10.8) K/ul RBC 3.48 L (4.70-6.10) M/uL Hgb 11.4 L (14.0-18.0) g/dl Hct 33.4 L (42.0-52.0) % MCV 96.0 (80.0-100.0) fL MCH 32.8 (25.0-34.0) pg MCHC 34.1 (32.0-36.0) g/dL RDW Std Deviation 45.7 (36.4-46.3) fL RDW Coeff of Marjorie 13.0 (11.5-14.5) % Plt Count 288 (130-400) K/uL MPV 10.0 (9.4-12.4) fL Immature Gran % (Auto) 0.7 % Neut % (Auto) 74.3 % Lymph % (Auto) 17.4 % [place] % (Auto) 7.5 % Eos % (Auto) 0.0 % Baso % (Auto) 0.1 % Neut # (Auto) 9.55 H (1.40-6.50) K/uL Lymph # (Auto) 2.24 (1.2-3.4) K/uL [place] # (Auto) 0.96 H (0.11-0.59) K/uL Eos # (Auto) 0.00 (0-0.50) K/uL Baso # (Auto) 0.01 (0-0.2) K/uL Immature Gran # (Auto) 0.09 (0.01-0.20) K/uL Sodium 134 L (136-145) mmol/L Potassium 4.3 (3.5-5.1) mmol/L Chloride 101 (98-107) mmol/L Carbon Dioxide 25 (21-32) mmol/L Anion Gap 8 (3-11) BUN 22 (6-23) mg/dl Creatinine 1.23 (0.6-1.4) mg/dl Est Cr Clr Drug Dosing 60.8 ml/min Est GFR ( Amer) 68.0 ml/min Est GFR (Non-Af Amer) 58.7 ml/min BUN/Creatinine Ratio 17.9 (10-20) Glucose 154 H (70-99(Fasting)) mg/dl Calcium 8.3 L (8.5-10.1) mg/dl Medications Administered Current Inpatient Medications Acetaminophen (Acetaminophen 500 Mg Tab) 1,000 mg PO Q8H PRN PRN Reason: MILD Pain Scale 1,2,3 & Pre PT Stop: 08/15/22 14:48 Al Hydrox/Mg Hydrox/Simethicone (Aluminum/Magnesium Susp 30 Ml Udc) 30 ml PO Q6H PRN PRN Reason: Dyspepsia Stop: 08/15/22 14:48 Albuterol (Albuterol Hfa 8 Gm Inhaler) 1 puffs INH UD PRN PRN Reason: Shortness Of Breath Stop: 08/15/22 14:48 Allopurinol (Allopurinol 100 Mg Tab) 200 mg PO QDL [facility] Stop: 08/16/22 11:29 Atorvastatin Calcium (Atorvastatin 40 Mg Tab) 40 mg PO PM [facility]INA Stop: 08/15/22 20:59 Last Admin: 07/16/22 19:58 Dose: 40 mg Bisacodyl (Bisacodyl 10 Mg Supp) 10 mg VA DAILY PRN PRN Reason: Constipation Stop: 08/15/22 14:48 Diphenhydramine HCl (Diphenhydramine Capsule 25 Mg Cap) 25 mg PO Q6H PRN PRN Reason: Allergic Rhinitis/Insomnia Stop: 08/15/22 14:48 Famotidine (Famotidine 20 Mg Tab) 20 mg PO Q12H PRN PRN Reason: Dyspepsia Stop: 08/15/22 14:48 Fluticasone Furoate (Fluticasone Furoate 200mcg 14 Puffs/Inhaler) 1 puffs INH DAILY [facility] Stop: 08/15/22 15:44 Last Admin: 07/17/22 08:00 Dose: 1 puffs Gabapentin (Gabapentin 400 Mg Cap) 400 mg PO TID [facility] Stop: 08/15/22 15:29 Last Admin: 07/17/22 07:57 Dose: 400 mg Hydromorphone HCl (Hydromorphone Inj 0.5 Mg/0.5 Ml Syr) 0.5 mg IV Q3H PRN PRN Reason: MODERATE Pain (Scale 4,5,6) & Pre PT Stop: 07/30/22 14:48 Hydroxyzine HCl (Hydroxyzine Hcl 25 Mg Tab) 25 mg PO Q8H PRN PRN Reason: Anxiety Stop: 08/15/22 14:48 Lactated Ringer's (Lr) 1,000 mls @ 15 mls/hr IV .Q24H [facility] Stop: 07/18/22 05:59 Last Infusion: 07/16/22 10:34 Dose: Infused Lactated Ringer's (Lr) 1,000 mls @ 150 mls/hr IV .Q6H40M [facility] Stop: 08/15/22 14:48 Last Admin: 07/17/22 04:07 Dose: Not Given Promethazine HCl 12.5 mg/ (Sodium Chloride) 50.5 mls @ 202 mls/hr IV Q6H PRN PRN Reason: Nausea &/or Vomiting Stop: 08/15/22 14:48 Acetaminophen (Ofirmev) 1,000 mg in 100 mls @ 400 mls/hr IV Q8H PRN PRN Reason: Pain Rating 1-3 & Pre PT Stop: 07/17/22 14:50 Last Infusion: 07/16/22 18:23 Dose: Infused Dexamethasone 6 mg/ Syringe 1.5 mls @ 1 mls/min IV DAILY [facility] Stop: 07/19/22 09:02 Last Admin: 07/17/22 08:00 Dose: 1 mls/min Influenza Virus Vaccine Quadrival (Do Not Administer Flu Vaccine) 1 each N/A PRN PRN PRN Reason: Notification Stop: 08/15/22 14:48 Lisinopril (Lisinopril 20 Mg Tab) 20 mg PO QDL [facility] Stop: 08/16/22 11:29 Loratadine (Loratadine 10 Mg Tab) 10 mg PO QDL [facility] Stop: 08/16/22 11:29 Lorazepam (Lorazepam 0.5 Mg Tab) 0.5 mg PO Q8H PRN PRN Reason: Sedation/Anxiety Stop: 08/15/22 14:48 Lorazepam (Lorazepam 2 Mg/1 Ml Vial) 0.5 mg IV Q8H PRN PRN Reason: Sedation/Anxiety Stop: 08/15/22 14:48 Magnesium Hydroxide (Magnesium Hydroxide Susp 30 Ml Udc) 30 ml PO Q24H PRN PRN Reason: Constipation Stop: 08/15/22 14:48 Metoclopramide HCl (Metoclopramide Hcl Inj 5 Mg/Ml 2 Ml Vial) 10 mg IV Q6H PRN PRN Reason: Nausea &/or Vomiting Stop: 08/15/22 14:48 Naloxone HCl (Naloxone Hcl 0.4 Mg/1 Ml Vial/Carp) 0.1 mg IV Q5M PRN PRN Reason: Oversedation/Resp depression Stop: 08/15/22 14:48 Ondansetron HCl (Ondansetron Inj 2 Mg/Ml 2 Ml Vial) 4 mg IV Q6H PRN PRN Reason: Nausea &/or Vomiting Stop: 08/15/22 14:48 Ondansetron HCl (Ondansetron 4 Mg Od Tab) 4 mg PO Q6H PRN PRN Reason: Nausea Stop: 08/15/22 14:48 Oxycodone HCl (Oxycodone Hcl Ir 5 Mg Tab (Immediate Release)) 5 - 10 mg PO Q4H PRN PRN Reason: Pain & Pre PT Stop: 07/30/22 14:48 Last Admin: 07/17/22 05:09 Dose: 10 mg Pantoprazole Sodium (Pantoprazole 40 Mg Tab) 40 mg PO QDL [facility] Stop: 08/16/22 11:29 Pneumococcal Polyvalent Vaccine (Do Not Administer Pneumococcal Vaccine) 1 each N/A PRN PRN PRN Reason: Notification Stop: 08/15/22 14:48 Polyethylene Glycol (Polyethylene (Miralax) 17 Gm Pack) 17 gm PO Q6 [facility] Stop: 08/16/22 05:59 Last Admin: 07/17/22 05:48 Dose: 17 gm Senna/Docusate Sodium (Docusate Sodium/Senna 50/8.6mg Tab) 2 tab PO HS [facility] Stop: 08/15/22 20:59 Last Admin: 07/16/22 19:58 Dose: 2 tab Sodium Biphosphate/Sodium Phosphate (Sod Phosphate/Sod Biphosphate Enema 132 Ml Btl) 132 ml VA ONE PRN PRN Reason: Constipation Stop: 08/15/22 14:48 Tramadol HCl (Tramadol Hcl 50 Mg Tablet) 50 - 100 mg PO Q4H PRN PRN Reason: Moderate-Severe pain & Pre PT Stop: 08/15/22 14:48 Last Admin: 07/16/22 16:20 Dose: 50 mg Vitamin D (Cholecalciferol 1,000 Units 25 Mcg Tab) 2,000 units PO QDL [facility] Stop: 08/16/22 11:29
[2022-07-17] MEDS: PANTOprazole 40 MG TAB PO SCH (11:22)
[2022-07-17] MEDS: allopurinoL 100 MG TAB PO SCH (11:22)
[2022-07-17] MEDS: CHOLECALCIFEROL 1,000 UNITS 25 MCG TAB PO SCH (11:22)
[2022-07-17] MEDS: LORATADINE 10 MG TAB PO SCH (11:23)
[2022-07-17] MEDS: lisinopril 20 MG TAB PO SCH (11:23)
[2022-07-17] MEDS: traMADol HCL 50 MG TABLET PO PRN ×2 (11:27→19:00)
[2022-07-17] MEDS: ATORVASTATIN 40 MG TAB PO SCH (20:14)
[2022-07-17] MEDS: DOCUSATE SODIUM/SENNA 50/8.6MG TAB PO SCH (20:14)
[2022-07-18] MEDS: POLYETHYLENE (MIRALAX) 17 GM PACK PO SCH ×4 (00:07→19:13)
[2022-07-18] MEDS: traMADol HCL 50 MG TABLET PO PRN ×3 (05:59→21:47)
[2022-07-18 08:37] LABS: Hematocrit (blood only) 31.3 % (42.0-52.0); Hemoglobin 10.8 g/dl (14.0-18.0); Mean Corpuscular Hgb Conc 34.5 g/dL (32.0-36.0); Mean Corpuscular Volume 95.7 fL (80.0-100.0); Mean Platelet Volume 10.5 fL (9.4-12.4); Platelet Count 247 K/uL (130-400); RDW Standard Deviation 45.3 fL (36.4-46.3); Red Blood Count 3.27 M/uL (4.70-6.10); White Blood Count 11.45 K/ul (4.8-10.8)
--- NOTE | 2022-07-18 08:42 | Orthopedic Progress Note ---
Date of Service July 18, 2022 Assessment & Plan (1) Neurogenic claudication due to lumbar spinal stenosis: Plan: Francisco Javier is postop day 2 status post hardware removal L4-S1, decompression fusion L2-4. He is doing well. We will continue with physical therapy today. DVT prophylaxis is in the form of teds and SCDs. Continue with pain control. Continue with aggressive bowel regimen. Anticipate discharge home tomorrow. Admission and Anticipated Discharge Date Admission Date: July 16, 2022 Subjective Francisco Javier is postoperative day 2 status post hard removal L4-S1, decompression instrumented fusion L2-4. He is doing well. Leg pain is resolved. Back pain is controlled. He had a bowel movement. JA drain output last shift is 55 cc. Yesterday in physical therapy standing 2 and 50 feet plus the hallways with the assistance of a walker. Overall doing well. Review of Systems Review of Systems: All systems reviewed & are unremarkable except as noted in HPI & below Physical Exam Physical Exam: He sitting in a chair no acute distress Alert and oriented x3 Lumbar dressing is clean dry intact with functioning JA drain SANDRA hose intact bilateral lower extremities Calf soft and nontender bilaterally Strength intact bilateral lower extremities Results & Data ([facility]) Vital Signs (Past 12 Hours) Vital Signs Temp Pulse Resp BP Pulse Ox O2 Del Method 07/18/22 08:11 36.4 C L 83 17 128/67 93 Room Air 07/18/22 04:00 36.9 C 82 18 148/69 H 96 Room Air
[2022-07-18 08:51] LABS: BUN Creatinine Ratio 24.4 (10-20); Calcium 8.6 mg/dl (8.5-10.1); Creatinine Clr Calc Pharmacy 60.8 ml/min; Est GFR (Non-African American) 58.7 ml/min; Phosphorus 2.6 mg/dl (2.5-4.9); Potassium 4.5 mmol/L (3.5-5.1)
[2022-07-18] MEDS: FLUTICASONE FUROATE 200MCG 14 PUFFS/INHALER INH SCH (09:10)
[2022-07-18] MEDS: GABAPENTIN 400 MG CAP PO SCH ×3 (09:11→20:47)
[2022-07-18] MEDS: dexAMETHasone 6 MG in SYRINGE 0 ML IV SCH (09:12)
--- NOTE | 2022-07-18 10:22 | Hospitalist Progress Note ---
Date of Service July 18, 2022 Assessment & Plan (1) Neurogenic claudication due to lumbar spinal stenosis: (2) Hypertension: (3) Hyperlipidemia: (4) Hypertensive kidney disease with chronic kidney disease stage III: Plan This is a 72 yo M with hypertension, hyperlipidemia, asthma, vitamin D deficiency, diverticulosis, CKD stage III, acquired hemolytic anemia, gout, pre diabetes who presented for elective lumbar procedure by Dr. Gil. He had a prior history of lumbar surgery with laminectomy in 1997 , fusion of low lumbar spine with laminectomy in 2019 and today underwent L2-L4 lumbar decompression fusion with L4-S1 hardware removal. Neurogenic claudication due to lumbar spinal stenosis s/p L2-L4 D/F and removal of hardware L4-S1 by Dr. Gil, POD #2 tolerated procedure well pain/wound management per ortho activity and therapy as prescribed by ortho encourage incentive spirometry monitor hgb, pre op 14.9 -> post-op Hgb 11.4 -> 10.8 (post-op blood loss anemia, expected, no need for blood transfusion) -continue to monitor H&H Hypertension continue lisinopril Bp stable, parameters placed Hyperlipidemia continue statin CKD stage III monitor renal fxn avoid nephrotoxic agents pre op cr 1.2 Acquired hemolytic anemia history hx of such in October 2021, no noted trigger s/p transfusions, and prednisone therapy now resolved follows Dr. Casillas no further issue Gout continue allopurinol DVT prophylaxis: per primary Dispo:per primary PCP: Dr. David Garcia Full code Thank you for this consultation. We will follow the patient with you during their hospital stay. You can reach a member of the [facility] Hospitalist Team 17/12 via hospitalist role on tiger text. Admission and Anticipated Discharge Date Admission Date: July 16, 2022 Subjective Pt seen in follow up after back surgery Currently sitting up in chair, in no acute distress. Denies any significant pain. No chest pain shortness of breath fevers chills, no abdominal pain Reports he has been ambulating + BM and voiding without difficulty, [place] catheter was removed Review of Systems Review of Systems: All systems reviewed & are unremarkable except as noted in Subjective Physical Exam Physical Exam: Constitutional: WD/WN, sitting up in chair, in NAD Head: Normocephalic, Atraumatic Eyes: PERRL, EOMI. conjunctivae normal, anicteric sclerae ENMT: external ear and nose normal, oropharynx normal Neck: normal visual inspection Respiratory: normal respiratory effort, lungs clear to auscultation, no wheeze, rales, rhonchi. Cardiovascular: RRR, no murmur, no edema Chest: normal inspection of chest Abdomen: normal bowel sounds, soft, nontender, +obese Musculoskeletal:moves extremities, JA drain with serosanguineous drainage Skin: no rashes, warm and dry normal turgor Neurologic: PERRL, EOMI, no face palsy, speech fluent, moves all extremities Psychiatric: A+Ox3, euthymic affect Results & Data Results & Data ([facility]) Vital Signs (Past 12 Hours) Vital Signs Temp Pulse Resp BP Pulse Ox O2 Del Method 07/18/22 08:11 36.4 C L 83 17 128/67 93 Room Air 07/18/22 04:00 36.9 C 82 18 148/69 H 96 Room Air Laboratory Results 07/18/22 07/18/22 Range/Units 08:00 08:00 WBC 11.45 H (4.8-10.8) K/ul RBC 3.27 L (4.70-6.10) M/uL Hgb 10.8 L (14.0-18.0) g/dl Hct 31.3 L (42.0-52.0) % MCV 95.7 (80.0-100.0) fL MCH 33.0 (25.0-34.0) pg MCHC 34.5 (32.0-36.0) g/dL RDW Std Deviation 45.3 (36.4-46.3) fL RDW Coeff of Marjorie 13.0 (11.5-14.5) % Plt Count 247 (130-400) K/uL MPV 10.5 (9.4-12.4) fL Sodium 134 L (136-145) mmol/L Potassium 4.5 (3.5-5.1) mmol/L Chloride 100 (98-107) mmol/L Carbon Dioxide 29 (21-32) mmol/L Anion Gap 5 (3-11) BUN 30 H (6-23) mg/dl Creatinine 1.23 (0.6-1.4) mg/dl Est Cr Clr Drug Dosing 60.8 ml/min Est GFR ( Amer) 68.0 ml/min Est GFR (Non-Af Amer) 58.7 ml/min BUN/Creatinine Ratio 24.4 H (10-20) Glucose 107 H (70-99(Fasting)) mg/dl Calcium 8.6 (8.5-10.1) mg/dl Phosphorus 2.6 (2.5-4.9) mg/dl Magnesium 2.0 (1.7-2.4) mg/dl Medications Administered Current Inpatient Medications Acetaminophen (Acetaminophen 500 Mg Tab) 1,000 mg PO Q8H PRN PRN Reason: MILD Pain Scale 1,2,3 & Pre PT Stop: 08/15/22 14:48 Al Hydrox/Mg Hydrox/Simethicone (Aluminum/Magnesium Susp 30 Ml Udc) 30 ml PO Q6H PRN PRN Reason: Dyspepsia Stop: 08/15/22 14:48 Albuterol (Albuterol Hfa 8 Gm Inhaler) 1 puffs INH UD PRN PRN Reason: Shortness Of Breath Stop: 08/15/22 14:48 Allopurinol (Allopurinol 100 Mg Tab) 200 mg PO QDL [facility] Stop: 08/16/22 11:29 Last Admin: 07/17/22 11:22 Dose: 200 mg Atorvastatin Calcium (Atorvastatin 40 Mg Tab) 40 mg PO PM [facility] Stop: 08/15/22 20:59 Last Admin: 07/17/22 20:14 Dose: 40 mg Bisacodyl (Bisacodyl 10 Mg Supp) 10 mg IN DAILY PRN PRN Reason: Constipation Stop: 08/15/22 14:48 Diphenhydramine HCl (Diphenhydramine Capsule 25 Mg Cap) 25 mg PO Q6H PRN PRN Reason: Allergic Rhinitis/Insomnia Stop: 08/15/22 14:48 Famotidine (Famotidine 20 Mg Tab) 20 mg PO Q12H PRN PRN Reason: Dyspepsia Stop: 08/15/22 14:48 Fluticasone Furoate (Fluticasone Furoate 200mcg 14 Puffs/Inhaler) 1 puffs INH DAILY [facility] Stop: 08/15/22 15:44 Last Admin: 07/18/22 09:10 Dose: 1 puffs Gabapentin (Gabapentin 400 Mg Cap) 400 mg PO TID [facility] Stop: 08/15/22 15:29 Last Admin: 07/18/22 09:11 Dose: 400 mg Hydromorphone HCl (Hydromorphone Inj 0.5 Mg/0.5 Ml Syr) 0.5 mg IV Q3H PRN PRN Reason: MODERATE Pain (Scale 4,5,6) & Pre PT Stop: 07/30/22 14:48 Hydroxyzine HCl (Hydroxyzine Hcl 25 Mg Tab) 25 mg PO Q8H PRN PRN Reason: Anxiety Stop: 08/15/22 14:48 Promethazine HCl 12.5 mg/ (Sodium Chloride) 50.5 mls @ 202 mls/hr IV Q6H PRN PRN Reason: Nausea &/or Vomiting Stop: 08/15/22 14:48 Dexamethasone 6 mg/ Syringe 1.5 mls @ 1 mls/min IV DAILY [facility] Stop: 07/19/22 09:02 Last Admin: 07/18/22 09:12 Dose: 1 mls/min Influenza Virus Vaccine Quadrival (Do Not Administer Flu Vaccine) 1 each N/A PRN PRN PRN Reason: Notification Stop: 08/15/22 14:48 Lisinopril (Lisinopril 20 Mg Tab) 20 mg PO QDL [facility] Stop: 08/16/22 11:29 Last Admin: 07/17/22 11:23 Dose: Not Given Loratadine (Loratadine 10 Mg Tab) 10 mg PO QDL [facility] Stop: 08/16/22 11:29 Last Admin: 07/17/22 11:23 Dose: 10 mg Lorazepam (Lorazepam 0.5 Mg Tab) 0.5 mg PO Q8H PRN PRN Reason: Sedation/Anxiety Stop: 08/15/22 14:48 Lorazepam (Lorazepam 2 Mg/1 Ml Vial) 0.5 mg IV Q8H PRN PRN Reason: Sedation/Anxiety Stop: 08/15/22 14:48 Magnesium Hydroxide (Magnesium Hydroxide Susp 30 Ml Udc) 30 ml PO Q24H PRN PRN Reason: Constipation Stop: 08/15/22 14:48 Metoclopramide HCl (Metoclopramide Hcl Inj 5 Mg/Ml 2 Ml Vial) 10 mg IV Q6H PRN PRN Reason: Nausea &/or Vomiting Stop: 08/15/22 14:48 Naloxone HCl (Naloxone Hcl 0.4 Mg/1 Ml Vial/Carp) 0.1 mg IV Q5M PRN PRN Reason: Oversedation/Resp depression Stop: 08/15/22 14:48 Ondansetron HCl (Ondansetron Inj 2 Mg/Ml 2 Ml Vial) 4 mg IV Q6H PRN PRN Reason: Nausea &/or Vomiting Stop: 08/15/22 14:48 Ondansetron HCl (Ondansetron 4 Mg Od Tab) 4 mg PO Q6H PRN PRN Reason: Nausea Stop: 08/15/22 14:48 Oxycodone HCl (Oxycodone Hcl Ir 5 Mg Tab (Immediate Release)) 5 - 10 mg PO Q4H PRN PRN Reason: Pain & Pre PT Stop: 07/30/22 14:48 Last Admin: 07/17/22 05:09 Dose: 10 mg Pantoprazole Sodium (Pantoprazole 40 Mg Tab) 40 mg PO QDL [facility] Stop: 08/16/22 11:29 Last Admin: 07/17/22 11:22 Dose: 40 mg Pneumococcal Polyvalent Vaccine (Do Not Administer Pneumococcal Vaccine) 1 each N/A PRN PRN PRN Reason: Notification Stop: 08/15/22 14:48 Polyethylene Glycol (Polyethylene (Miralax) 17 Gm Pack) 17 gm PO Q6 [facility] Stop: 08/16/22 05:59 Last Admin: 07/18/22 05:59 Dose: 17 gm Senna/Docusate Sodium (Docusate Sodium/Senna 50/8.6mg Tab) 2 tab PO HS [facility] Stop: 08/15/22 20:59 Last Admin: 07/17/22 20:14 Dose: 2 tab Sodium Biphosphate/Sodium Phosphate (Sod Phosphate/Sod Biphosphate Enema 132 Ml Btl) 132 ml IN ONE PRN PRN Reason: Constipation Stop: 08/15/22 14:48 Tramadol HCl (Tramadol Hcl 50 Mg Tablet) 50 - 100 mg PO Q4H PRN PRN Reason: Moderate-Severe pain & Pre PT Stop: 08/15/22 14:48 Last Admin: 07/18/22 05:59 Dose: 100 mg Vitamin D (Cholecalciferol 1,000 Units 25 Mcg Tab) 2,000 units PO QDL [facility] Stop: 08/16/22 11:29 Last Admin: 07/17/22 11:22 Dose: 2,000 units
[2022-07-18] MEDS: allopurinoL 100 MG TAB PO SCH (12:47)
[2022-07-18] MEDS: CHOLECALCIFEROL 1,000 UNITS 25 MCG TAB PO SCH (12:48)
[2022-07-18] MEDS: lisinopril 20 MG TAB PO SCH (12:49)
[2022-07-18] MEDS: LORATADINE 10 MG TAB PO SCH (12:49)
[2022-07-18] MEDS: PANTOprazole 40 MG TAB PO SCH (12:50)
[2022-07-18] MEDS: DOCUSATE SODIUM/SENNA 50/8.6MG TAB PO SCH (20:46)
[2022-07-18] MEDS: ATORVASTATIN 40 MG TAB PO SCH (20:47)
[2022-07-19] MEDS: traMADol HCL 50 MG TABLET PO PRN ×3 (01:54→11:12)
[2022-07-19 06:09] LABS: Hematocrit (blood only) 28.2 % (42.0-52.0); Hemoglobin 9.7 g/dl (14.0-18.0); Mean Corpuscular Hemoglobin 32.7 pg (25.0-34.0); Mean Corpuscular Hgb Conc 34.4 g/dL (32.0-36.0); Mean Corpuscular Volume 94.9 fL (80.0-100.0); Mean Platelet Volume 10.6 fL (9.4-12.4); Platelet Count 238 K/uL (130-400); RDW Coefficient of Variation 12.8 % (11.5-14.5); RDW Standard Deviation 44.8 fL (36.4-46.3); Red Blood Count 2.97 M/uL (4.70-6.10)
[2022-07-19 06:25] LABS: BUN Creatinine Ratio 27.3 (10-20); Calcium 8.5 mg/dl (8.5-10.1); Creatinine Clr Calc Pharmacy 75.6 ml/min; Est GFR (African American) 88.4 ml/min; Est GFR (Non-African American) 76.3 ml/min; Magnesium 2.1 mg/dl (1.7-2.4); Potassium 4.5 mmol/L (3.5-5.1)
[2022-07-19] MEDS: FLUTICASONE FUROATE 200MCG 14 PUFFS/INHALER INH SCH (07:58)
[2022-07-19] MEDS: dexAMETHasone 6 MG in SYRINGE 0 ML IV SCH (07:58)
[2022-07-19] MEDS: GABAPENTIN 400 MG CAP PO SCH (07:59)
--- NOTE | 2022-07-19 08:28 | Discharge Summary ---
Date of Service July 19, 2022 Admission HPI Per Admitting Provider This is a 72-year-old male who presents with chronic persistent back and leg pain after failing course of nonoperative care is here for surgical invention. Principal Diagnosis Lumbar spinal stenosis with radiculopathy Discharge Data Allergies Allergy/AdvReac Type Severity Reaction Status Date / Time latex Allergy Unknown HIVES, Verified 07/16/22 08:15 RASH-WITH POWDER WITH LATEX GLOVES nickel Allergy Unknown Rash Verified 07/16/22 08:15 Consultations 07/16/22 14:49 Consult Hospitalist Routine Procedures Performed Operation Date: 07/16/22 09:35 Actual Procedures p L2-L4 Decompression and Fusion with Spinal Cord Monitoring,(Not Applicable) - Clarke Gil DO s L4-S1 Hardware Removal(Not Applicable) - Clarke Gil DO Ordered Studies 07/16/22 09:35 FL lumbar spine 2-3V Routine Hospital Course (1) Neurogenic claudication due to lumbar spinal stenosis: Patient underwent lumbar decompression fusion tolerated this well was taken to the orthopedic for postoperative. Postop day #1 is up and ambulating progressed appropriately through postop day 2 and 3 JA drain decreased appropriate. Excellent strength testing. Subsequent discharge home. Discharge orders i nstructions from the chart for further review. Total Time Total Time Spent Total Time Spent (In Minutes): 20 minutes Discharge Plan Discharge Items Patient Disposition: Home - Self-Care Reason For Visit: Intervertebral Disc Disorders with Radiculopathy, Discharge Diagnosis: Lumbar spinal stenosis with herniated nucleus pulposus and radiculopathy Activity: As commented below Non-emergency contact: Primary Care Provider Call non-emergency contact if: you have any medication questions Follow-up/Referrals: David Garcia MD [Primary Care Provider] - Diet: Regular Addtl Attending Provider Instructions: ACTIVITY RECOMMENDATIONS: SELF CARE INSTRUCTIONS AFTER THORACIC/LUMBAR FUSIONS 1. You may walk to your tolerance. It is good exercise for your legs and back. Expect some back and intermittent leg aches and pains. 2. You may perform "counter-top" level activities (make a sandwich, stef with a project, etc.). 3. No bending or lifting of more than 10 pounds or back twisting of any nature (roll like a log when turning in bed). 4. You may ride in a car for 20-30 minutes at a time. No driving until after your first visit with your doctor. 5. Frequent changes of position and restricting sitting to 30 minutes at a time will help limit the amount of back spasms and stiffness you may experience. 6. You may discontinue the use of ambulatory aids (cane, crutches, etc.) once your strength and confidence allow. 7. You may dining room maid the shower and let water strike your incision when you arri ve home at least once daily. Do not take a tub bath, sit in a hot tub or go into a swimming pool until after your first recheck in the office. SPECIAL CARE INSTRUCTIONS: VERY IMPORTANT TO READ AND REVIEW A. Your surgical incision has been closed with a cosmetic suture under the skin that will dissolve in about 6 weeks. In 14 days, you can use a pair of clean scissors and cut the suture that is left outside of the skin at the ends of your incision. 1. The small skin tapes can be removed 7 days after surgery if they have not fallen off by that point. 2. You may keep the wound open to air as much as possible to promote healing after post-op day number 5 unless told otherwise by your doctor. 3. If you think the wound looks like it is becoming infected (redness or worsening drainage) and/or you are experiencing fever, chill or worsening back pain and muscle spasms, contact the office so that we may evaluate you as soon as possible. B. Complications are uncommon, but please contact us if you have any signs or symptoms of: 1. wound infection (fever higher than 102.5 degrees F, redness, separation of wound, drainage, or increasing pain from the incision) 2. blood clots in legs (pain, swelling, redness and warmth in legs) 3. urinary tract infection (fever higher than 102.5 degrees F, burning upon urination or increased frequency of urination) 4. nerve problems (inability to walk on your toes or heels, numbness, loss of bowel or bladder control) 5. any other symptoms that concern you C. Please call the office at if you have any concerns or questions about your operation or recovery. D. No smoking! Smoking drastically decreases the chance of a solid fusion. E. Do not take any anti-inflammatory medications (Indocin, Advil, Motrin, Aspirin, Naprosyn, etc.) as these may inhibit the chance of a solid fusion. Tylenol is okay to take for pain. MANAGING PAIN AFTER SPINAL SURGERY 1. Narcotic medication is intended for short-term use and will be provided for surgical pain. Surgical pain usually lasts for a period of 4-6 weeks. Narcotic medication includes Percocet, Vicodin, Darvocet, Tylenol #3 or Lortab. 2. Longer-term pain is more appropriately treated with non-narcotic medication such as Tylenol ES. 3. Muscle spasm is not appropriately treated with narcotics. Muscle relaxers such as Soma, Flexeril or Skelaxin can be used along with Tylenol ES. 4. Remember that we all live with some "aches and pains". This is not unusual or uncommon after an injury or as we get older. a. Back pain is expected and may include muscle spasms for 4 to 6 weeks after surgery. The pain should gradually improve. If the pain worsens for no apparent reason, please contact the office. b. Intermittent leg pain may also be experienced and should not be concerned about unless it worsens for no apparent reason. If so, please contact the office. 5. We will provide appropriate medication within the normal guidelines of their prescribed use. We will also be very cautious and aware of potential abuse and extended duration of patients' medication needs. a. Pain medications are for your comfort and to assist with sleep and rest so that the tissue can heal. They are not provided in order to return to normal activity and should not be used through the day. To do so or worsening pain at night can result from ongoing tissue damage and development of tolerance to the prescribed medicine. 6. Please allow 2-3 days to process refills. Prescriptions will not be mailed but must be picked up at the office. FOLLOW UP VISIT: Keep your scheduled follow-up appointment. Any questions, please call the office at . Pending Studies at Discharge: No Stand-Alone Forms: My [employer], Smoking Cessation Medications and GA Order Prescriptions: New tramadol 50 mg tablet 50 mg PO Q6H PRN (Reason: pain, moderate) Qty: 30 0RF oxycodone 5 mg tablet 5 mg PO Q6H PRN (Reason: pain, severe) Qty: 30 0RF Continued colchicine 0.6 mg tablet 0.6 mg PO BID PRN (Reason: GOUT FLARE UPS) loratadine 10 mg tablet 10 mg PO QDL acetaminophen 500 mg capsule 1,000 mg PO Q8H Rx Instructions: PER PT "USUALLY TAKE 1000 MG QAM TO HELP WITH STIFFNESS". Flovent HFA 110 mcg/actuation HFA aerosol inhaler 2 puff inhalation BID gabapentin 400 mg capsule 400 mg PO TID triamcinolone acetonide 0.1 % cream 1 applic topical BID PRN (Reason: Skin Irritation) lisinopril 20 mg tablet 20 mg PO QDL atorvastatin 40 mg tablet 40 mg PO PM allopurinol 100 mg tablet 200 mg PO QDL cholecalciferol (vitamin D3) [Vitamin D3] 50 mcg (2,000 unit) Capsule 2,000 mcg PO QDL albuterol sulfate 90 mcg/actuation HFA aerosol inhaler 1 puff INHALATION DIRECTED PRN (Reason: Shortness Of Breath) Glucosamine Chondroitin 550-30-1 mg Capsule 2 cap PO QPM diclofenac sodium 1 % Gel 2 g TOPICAL QID PRN (Reason: Pain) cyanocobalamin (vitamin B-12) 500 mcg Tablet 1,000 mcg PO QDL omeprazole 20 mg Capsule,Delayed Release(Dr/Ec) 20 mg PO QDL Discharge Orders: Discharge Order (Routine); Ordered 07/19/22 Ordered By: Clarke Gil Admission Data Admit Date/Time: 07/16/22 13:14 Attending Provider: Clarke Gil Admit Provider: Clarke Gil Primary Care Provider: Daivd Garcia Other Providers: Dorene Vincent ; Lakhwinder Shepard
--- NOTE | 2022-07-19 09:20 | Hospitalist Progress Note ---
Date of Service July 19, 2022 Assessment & Plan (1) Neurogenic claudication due to lumbar spinal stenosis: (2) Hypertension: (3) Hyperlipidemia: (4) Hypertensive kidney disease with chronic kidney disease stage III: Plan This is a 72 yo M with hypertension, hyperlipidemia, asthma, vitamin D deficiency, diverticulosis, CKD stage III, acquired hemolytic anemia, gout, pre diabetes who presented for elective lumbar procedure by Dr. Gil. He had a prior history of lumbar surgery with laminectomy in 1997 , fusion of low lumbar spine with laminectomy in 2019 and today underwent L2-L4 lumbar decompression fusion with L4-S1 hardware removal. Neurogenic claudication due to lumbar spinal stenosis s/p L2-L4 D/F and removal of hardware L4-S1 by Dr. Gil, POD #3 tolerated procedure well pain/wound management per ortho activity and therapy as prescribed by ortho encourage incentive spirometry monitor hgb, pre op 14.9 -> post-op Hgb 11.4 -> 10.8 -> 9.7 (post-op blood loss anemia and dilutional anemia from IVF, expected, no need for blood transfusion) -continue to monitor H&H Hypertension continue lisinopril Bp stable, parameters placed Hyperlipidemia continue statin CKD stage III monitor renal fxn avoid nephrotoxic agents pre op cr 1.2 Acquired hemolytic anemia history hx of such in October 2021, no noted trigger s/p transfusions, and prednisone therapy now resolved follows Dr. Casillas no further issue Gout continue allopurinol DVT prophylaxis: per primary Dispo:per primary PCP: Dr. David Garcia Full code Thank you for this consultation. We will follow the patient with you during their hospital stay. You can reach a member of the [facility] Hospitalist Team 17/12 via hospitalist role on tiger text. Admission and Anticipated Discharge Date Admission Date: July 16, 2022 Subjective Pt seen in follow up after back surgery Currently sitting up in chair, in no acute distress. Denies any significant pain. No chest pain shortness of breath fevers chills, no abdominal pain Reports he has been ambulating + BM and voiding without difficulty He is using incentive spirometer Review of Systems Review of Systems: All systems reviewed & are unremarkable except as noted in Subjective Physical Exam Physical Exam: Constitutional: WD/WN, sitting up in chair, in NAD Head: Normocephalic, Atraumatic Eyes: PERRL, EOMI. conjunctivae normal, anicteric sclerae ENMT: external ear and nose normal, oropharynx normal Neck: normal visual inspection Respiratory: normal respiratory effort, lungs clear to auscultation, no wheeze, rales, rhonchi. Cardiovascular: RRR, no murmur, no edema Chest: normal inspection of chest Abdomen: normal bowel sounds, soft, nontender, +obese Musculoskeletal:moves extremities, JA drain with serosanguineous drainage Skin: no rashes, warm and dry normal turgor Neurologic: PERRL, EOMI, no face palsy, speech fluent, moves all extremities Psychiatric: A+Ox3, euthymic affect Results & Data Results & Data ([facility]) Vital Signs (Past 12 Hours) Vital Signs Temp Pulse Resp BP Pulse Ox O2 Del Method 07/19/22 08:31 36.4 C L 81 16 122/72 96 Room Air 07/18/22 22:11 36.5 C 90 18 166/80 H 94 Room Air Laboratory Results 07/19/22 07/19/22 Range/Units 05:35 05:35 WBC 10.20 (4.8-10.8) K/ul RBC 2.97 L (4.70-6.10) M/uL Hgb 9.7 L (14.0-18.0) g/dl Hct 28.2 L (42.0-52.0) % MCV 94.9 (80.0-100.0) fL MCH 32.7 (25.0-34.0) pg MCHC 34.4 (32.0-36.0) g/dL RDW Std Deviation 44.8 (36.4-46.3) fL RDW Coeff of Marjorie 12.8 (11.5-14.5) % Plt Count 238 (130-400) K/uL MPV 10.6 (9.4-12.4) fL Sodium 136 (136-145) mmol/L Potassium 4.5 (3.5-5.1) mmol/L Chloride 103 (98-107) mmol/L Carbon Dioxide 29 (21-32) mmol/L Anion Gap 4 (3-11) BUN 27 H (6-23) mg/dl Creatinine 0.99 (0.6-1.4) mg/dl Est Cr Clr Drug Dosing 75.6 ml/min Est GFR ( Amer) 88.4 ml/min Est GFR (Non-Af Amer) 76.3 ml/min BUN/Creatinine Ratio 27.3 H (10-20) Glucose 115 H (70-99(Fasting)) mg/dl Calcium 8.5 (8.5-10.1) mg/dl Magnesium 2.1 (1.7-2.4) mg/dl Medications Administered Current Inpatient Medications Acetaminophen (Acetaminophen 500 Mg Tab) 1,000 mg PO Q8H PRN PRN Reason: MILD Pain Scale 1,2,3 & Pre PT Stop: 08/15/22 14:48 Al Hydrox/Mg Hydrox/Simethicone (Aluminum/Magnesium Susp 30 Ml Udc) 30 ml PO Q6H PRN PRN Reason: Dyspepsia Stop: 08/15/22 14:48 Albuterol (Albuterol Hfa 8 Gm Inhaler) 1 puffs INH UD PRN PRN Reason: Shortness Of Breath Stop: 08/15/22 14:48 Allopurinol (Allopurinol 100 Mg Tab) 200 mg PO QDL IRINA Stop: 08/16/22 11:29 Last Admin: 07/18/22 12:47 Dose: 200 mg Atorvastatin Calcium (Atorvastatin 40 Mg Tab) 40 mg PO PM IRINA Stop: 08/15/22 20:59 Last Admin: 07/18/22 20:47 Dose: 40 mg Bisacodyl (Bisacodyl 10 Mg Supp) 10 mg [place] DAILY PRN PRN Reason: Constipation Stop: 08/15/22 14:48 Diphenhydramine HCl (Diphenhydramine Capsule 25 Mg Cap) 25 mg PO Q6H PRN PRN Reason: Allergic Rhinitis/Insomnia Stop: 08/15/22 14:48 Famotidine (Famotidine 20 Mg Tab) 20 mg PO Q12H PRN PRN Reason: Dyspepsia Stop: 08/15/22 14:48 Fluticasone Furoate (Fluticasone Furoate 200mcg 14 Puffs/Inhaler) 1 puffs INH DAILY IRINA Stop: 08/15/22 15:44 Last Admin: 07/19/22 07:58 Dose: 1 puffs Gabapentin (Gabapentin 400 Mg Cap) 400 mg PO TID IRINA Stop: 08/15/22 15:29 Last Admin: 07/19/22 07:59 Dose: 400 mg Hydromorphone HCl (Hydromorphone Inj 0.5 Mg/0.5 Ml Syr) 0.5 mg IV Q3H PRN PRN Reason: MODERATE Pain (Scale 4,5,6) & Pre PT Stop: 07/30/22 14:48 Hydroxyzine HCl (Hydroxyzine Hcl 25 Mg Tab) 25 mg PO Q8H PRN PRN Reason: Anxiety Stop: 08/15/22 14:48 Promethazine HCl 12.5 mg/ (Sodium Chloride) 50.5 mls @ 202 mls/hr IV Q6H PRN PRN Reason: Nausea &/or Vomiting Stop: 08/15/22 14:48 Influenza Virus Vaccine Quadrival (Do Not Administer Flu Vaccine) 1 each N/A PRN PRN PRN Reason: Notification Stop: 08/15/22 14:48 Lisinopril (Lisinopril 20 Mg Tab) 20 mg PO QDL [facility] Stop: 08/16/22 11:29 Last Admin: 07/18/22 12:49 Dose: 20 mg Loratadine (Loratadine 10 Mg Tab) 10 mg PO QDL [facility] Stop: 08/16/22 11:29 Last Admin: 07/18/22 12:49 Dose: 10 mg Lorazepam (Lorazepam 0.5 Mg Tab) 0.5 mg PO Q8H PRN PRN Reason: Sedation/Anxiety Stop: 08/15/22 14:48 Lorazepam (Lorazepam 2 Mg/1 Ml Vial) 0.5 mg IV Q8H PRN PRN Reason: Sedation/Anxiety Stop: 08/15/22 14:48 Magnesium Hydroxide (Magnesium Hydroxide Susp 30 Ml Udc) 30 ml PO Q24H PRN PRN Reason: Constipation Stop: 08/15/22 14:48 Metoclopramide HCl (Metoclopramide Hcl Inj 5 Mg/Ml 2 Ml Vial) 10 mg IV Q6H PRN PRN Reason: Nausea &/or Vomiting Stop: 08/15/22 14:48 Naloxone HCl (Naloxone Hcl 0.4 Mg/1 Ml Vial/Carp) 0.1 mg IV Q5M PRN PRN Reason: Oversedation/Resp depression Stop: 08/15/22 14:48 Ondansetron HCl (Ondansetron Inj 2 Mg/Ml 2 Ml Vial) 4 mg IV Q6H PRN PRN Reason: Nausea &/or Vomiting Stop: 08/15/22 14:48 Ondansetron HCl (Ondansetron 4 Mg Od Tab) 4 mg PO Q6H PRN PRN Reason: Nausea Stop: 08/15/22 14:48 Oxycodone HCl (Oxycodone Hcl Ir 5 Mg Tab (Immediate Release)) 5 - 10 mg PO Q4H PRN PRN Reason: Pain & Pre PT Stop: 07/30/22 14:48 Last Admin: 07/17/22 05:09 Dose: 10 mg Pantoprazole Sodium (Pantoprazole 40 Mg Tab) 40 mg PO QDL [facility] Stop: 08/16/22 11:29 Last Admin: 07/18/22 12:50 Dose: 40 mg Pneumococcal Polyvalent Vaccine (Do Not Administer Pneumococcal Vaccine) 1 each N/A PRN PRN PRN Reason: Notification Stop: 08/15/22 14:48 Senna/Docusate Sodium (Docusate Sodium/Senna 50/8.6mg Tab) 2 tab PO HS [facility] Stop: 08/15/22 20:59 Last Admin: 07/18/22 20:46 Dose: 2 tab Sodium Biphosphate/Sodium Phosphate (Sod Phosphate/Sod Biphosphate Enema 132 Ml Btl) 132 ml [place] ONE PRN PRN Reason: Constipation Stop: 08/15/22 14:48 Tramadol HCl (Tramadol Hcl 50 Mg Tablet) 50 - 100 mg PO Q4H PRN PRN Reason: Moderate-Severe pain & Pre PT Stop: 08/15/22 14:48 Last Admin: 07/19/22 07:48 Dose: 100 mg Vitamin D (Cholecalciferol 1,000 Units 25 Mcg Tab) 2,000 units PO QDL [facility] Stop: 08/16/22 11:29 Last Admin: 07/18/22 12:48 Dose: 2,000 units
[2022-07-19] MEDS: CHOLECALCIFEROL 1,000 UNITS 25 MCG TAB PO SCH (11:08)
[2022-07-19] MEDS: allopurinoL 100 MG TAB PO SCH (11:08)
[2022-07-19] MEDS: lisinopril 20 MG TAB PO SCH (11:09)
[2022-07-19] MEDS: LORATADINE 10 MG TAB PO SCH (11:09)
[2022-07-19] MEDS: PANTOprazole 40 MG TAB PO SCH (11:10)
== END 2022-07-19 12:46 | disposition home or self-care (01) | DRG 454 ==
LOC: ASU 07:57 → 3N 13:14

== ENCOUNTER 2022-11-21 06:43 | Observation (INO) ==
--- NOTE | 2022-11-02 09:41 | PAT Medication Instructions ---
Medication Instructions Date of Service November 02, 2022 Home Medications acetaminophen 500 mg capsule 1,000 mg PO Q8H allopurinol 100 mg tablet 200 mg PO QDL atorvastatin 40 mg tablet 40 mg PO PM colchicine 0.6 mg tablet 0.6 mg PO BID PRN GOUT FLARE UPS fluticasone propionate 110 mcg/actuation HFA aerosol inhaler (Flovent HFA) 2 puff inhalation BID gabapentin 400 mg capsule 400 mg PO TID lisinopril 20 mg tablet 20 mg PO QDL loratadine 10 mg tablet 10 mg PO QDL triamcinolone acetonide 0.1 % topical cream 1 applic topical BID PRN Skin Irritation albuterol sulfate 90 mcg/actuation aerosol inhaler 1 puff inhalation DIRECTED PRN Shortness Of Breath cholecalciferol (vitamin D3) 50 mcg (2,000 unit) capsule (Vitamin D3) 2,000 mcg PO QDL diclofenac sodium 1 % topical gel 2 g topical QID PRN Pain glucosamine sulf dipot chlr,msm,chond 550 mg-C 30 mg-etienne 1 mg capsule (Glucosamine Chondroitin) 2 cap PO QPM cyanocobalamin (vitamin B-12) 500 mcg tablet 1,000 mcg PO QDL omeprazole 20 mg capsule,delayed release 20 mg PO QDL 0 gabapentin 100 mg capsule 100 mg PO TID Continue as directed allopurinol 100 mg tablet 200 mg PO QDL omeprazole 20 mg capsule,delayed release 20 mg PO QDL ASK your surgeon for instructions diclofenac sodium 1 % topical gel 2 g topical QID PRN Pain STOP taking 2 weeks before surgery glucosamine sulf dipot chlr,msm,chond 550 mg-C 30 mg-etienne 1 mg capsule (Glucosamine Chondroitin) 2 cap PO QPM STOP taking 24 hours before surgery triamcinolone acetonide 0.1 % topical cream 1 applic topical BID PRN Skin Irritation DO NOT take the morning of surgery colchicine 0.6 mg tablet 0.6 mg PO BID PRN GOUT FLARE UPS lisinopril 20 mg tablet 20 mg PO QDL loratadine 10 mg tablet 10 mg PO QDL cholecalciferol (vitamin D3) 50 mcg (2,000 unit) capsule (Vitamin D3) 2,000 mcg PO QDL cyanocobalamin (vitamin B-12) 500 mcg tablet 1,000 mcg PO QDL Take morning of surgery With a small sip of water, OTHERWISE NOTHING TO EAT OR DRINK AFTER MIDNIGHT: acetaminophen 500 mg capsule 1,000 mg PO Q8H fluticasone propionate 110 mcg/actuation HFA aerosol inhaler (Flovent HFA) 2 puff inhalation BID gabapentin 400 mg capsule 400 mg PO TID albuterol sulfate 90 mcg/actuation aerosol inhaler 1 puff inhalation DIRECTED PRN Shortness Of Breath (use if needed; please bring with you to hospital day of surgery if possible) gabapentin 100 mg capsule 100 mg PO TID Take evening before surgery acetaminophen 500 mg capsule 1,000 mg PO Q8H atorvastatin 40 mg tablet 40 mg PO PM colchicine 0.6 mg tablet 0.6 mg PO BID PRN GOUT FLARE UPS (if needed) fluticasone propionate 110 mcg/actuation HFA aerosol inhaler (Flovent HFA) 2 puff inhalation BID gabapentin 400 mg capsule 400 mg PO TID albuterol sulfate 90 mcg/actuation aerosol inhaler 1 puff inhalation DIRECTED PRN Shortness Of Breath (if needed) gabapentin 100 mg capsule 100 mg PO TID Other Notes If you have any questions please call us at [phone] or [phone] or [phone] or [phone]
--- NOTE | 2022-11-07 11:43 | Anesthesiology Consultation ---
Date of Service November 07, 2022 Assessment & Plan (1) Encounter for pre-operative examination: - COVID screening: Per assessment on 11/07: No known COVID-19 positive contacts or current COVID-19 related symptoms. Travel screen negative. Patient vaccinated. At surgeon discretion if preop Covid testing being done. - Outpatient joint assessment: Pt currently scheduled for inpatient pathway. If surgeon requests review for outpatient joint pathway, patient is not recommended candidate for outpatient joint program from anesthesia standpoint. - S/P L2-L4 decompression and fusion, hardware removal (07/15/22): Grade view 1, MAC#4, ETT 7.5 at [facility] - Hematology visit (10/04/22): "He was seen and admitted to the hospital on 11/25/2020 and had blood test done which revealed a hemoglobin level of 5.2 with MCV of 121 and RDW of 17.2 with normal WBC and platelet counts. Bilirubin was 1.5 and the rest of the LFTs were within acceptable range. Patient received 3 units of blood transfusion with improvement in the symptoms. He was discharged on 11/28/2020with hemoglobin of 10.2. He had colonoscopy done on 01/01/2021 which shows mild diverticulosis in the entire colon with none bleeding internal hemorrhoids. Upper endoscopy was also done which shows normal esophagus, small hiatal hernia and diffuse gastritis. Biopsy was done and was gastric and duodenal mucosa with no diagnostic abnormality and negative for metaplasia, dysplasia or malignancy. Negative for Helicobacter.. History of AIHA.. Vitamin B12 deficiency.. CBC reviewed: H/H stable.. Continue sublingual vitamin b12 supplement 1,000 mcg daily.. Continue to follow patient clinically. Patient aware of risk of reoccurrence and to alert office with any significantly increased fatigue, weakness, SOB, etc. No contraindication from Hem/Onc standpoint for patient to move forward with hip replacement if needed" > 6 month f/u recommended. - [facility] visit (10/17/22): "Patient is doing well just over 3 months postoperative.. From our perspective he can move forward with his hip replacement." - General surgery visit (10/19/22): "72-year-old gentleman presents with possible left inguinal hernia. He recently underwent a CT scan which demonstrates small fat containing bilateral inguinal hernias. He does have tenderness to palpation in the left inguinal region however no hernia is palpable bilaterally. He is set to undergo right hip replacement this October. I would not recommend any surgical repair for the potential hernia at this time. He may proceed with his right hip surgery as scheduled. He will follow-up with us once complete, as needed." Chart Review Chart Review: Acceptable Risk for Surgery and Patient seen in Pre Admission Testing Teaching & Discussion Pre-Anesthesia Teaching/Discussion Notes: Instructed NPO after midnight before surgery,except medications with 15 cc of water. Medication instructions provided according to the PAT guidelines. History Surgery Operation Date: 11/21/22 08:55 Proposed Procedures p Right Total Hip Arthroplasty - Jude Peters MD Height/Weight Height: 5 ft 6 in Weight: 101.6 kg Allergies Allergy/AdvReac Type Severity Reaction Status Date / Time latex Allergy Unknown HIVES, Verified 11/02/22 08:04 RASH-WITH POWDER WITH LATEX GLOVES nickel Allergy Unknown Rash Verified 11/02/22 08:04 Medications Home Medications Medication Instructions Recorded Confirmed Last Taken acetaminophen 500 mg capsule 1,000 mg PO Q8H 09/01/20 11/02/22 07/16/22 06:15 allopurinol 100 mg tablet 200 mg PO QDL 09/01/20 11/02/22 07/15/22 12:00 atorvastatin 40 mg tablet 40 mg PO PM 09/01/20 11/02/22 07/15/22 18:30 colchicine 0.6 mg tablet 0.6 mg PO BID PRN GOUT FLARE UPS 09/01/20 11/02/22 Unknown fluticasone propionate 110 2 puff inhalation BID 09/01/20 11/02/22 07/16/22 06:15 mcg/actuation HFA aerosol inhaler (Flovent HFA) gabapentin 400 mg capsule 400 mg PO TID 09/01/20 11/02/22 07/16/22 06:15 lisinopril 20 mg tablet 20 mg PO QDL 09/01/20 11/02/22 07/15/22 12:00 loratadine 10 mg tablet 10 mg PO QDL 09/01/20 11/02/22 07/15/22 12:00 triamcinolone acetonide 0.1 % 1 applic topical BID PRN Skin 09/01/20 11/02/22 01/10/21 08:00 topical cream Irritation albuterol sulfate 90 mcg/actuation 1 puff inhalation DIRECTED PRN 11/25/20 11/02/22 Unknown aerosol inhaler Shortness Of Breath cholecalciferol (vitamin D3) 50 2,000 mcg PO QDL 11/25/20 11/02/22 07/15/22 12:00 mcg (2,000 unit) capsule (Vitamin D3) glucosamine sulf dipot 2 cap PO QPM 01/03/21 11/02/22 2 Weeks Ago chlr,msm,chond 550 mg-C 30 mg-etienne ~07/02/22 1 mg capsule (Glucosamine Chondroitin) cyanocobalamin (vitamin B-12) 500 1,000 mcg PO QDL 06/25/22 11/02/22 07/15/22 12:00 mcg tablet omeprazole 20 mg capsule,delayed 20 mg PO QDL 06/25/22 11/02/22 07/15/22 12:00 release gabapentin 100 mg capsule 100 mg PO TID 11/02/22 11/02/22 Unknown Past Medical History Medical History AAA (abdominal aortic aneurysm) 1.3 cm saccular aneurysm of the mid abdominal aorta on 10/10/22 CT Abdomen/Pelvis Anemia Profound anemia diagnosed 11/2020, received 3 units blood Autoimmune hemolytic anemia Follows with Hematology ([facility]) Chronic kidney disease, stage 3 unspecified Chronic urticaria DDD (degenerative disc disease), lumbar Diverticulosis Dyslipidemia Essential (primary) hypertension Fatty liver Monitoring, diet changes GERD (gastroesophageal reflux disease) controlled, stable per pt History of blood transfusion 11/2020 (3 units) Hyperlipidemia Hypertension controlled, stable per pt Hypertensive kidney disease with chronic kidney disease stage III no specialist Inguinal hernia small inguinal hernia Monitoring with Dr. Moran ([facility] General Surgery) Lumbar spinal stenosis Mild persistent asthma, uncomplicated Pulmonary hypertension PASP 39 mmHg on 11/2020 echo Exercise / Class Metabolic Activity III < 4 Walking/Shop/Light housework (uses cane) Past Family History Family History Sister Family history of diabetes mellitus Mother Family history of diabetes mellitus Other No family history of adverse response to anesthesia Past Surgical History Surgical History H/O spinal fusion lumbar History of colonoscopy History of esophagogastroduodenoscopy (EGD) History of hand surgery Right nerve repair S/P lumbar discectomy 1997 S/P lumbar spinal fusion L2-L4 decompression and fusion, hardware removal (07/15/22): Grade view 1, MAC#4, ETT 7.5 at [facility] Past Anesthesia History No Hx of Anesthesia Complications and No Family Hx of Anesthesia Complications History of PONV No Hx of PONV and Hx of Motion Sickness (Remote hx) Social History Smoking Status: Former smoker tobacco type: cigarettes Do You Dip or Chew Tobacco: No Smoking End Date: Quit 30 years ago Hx Alcohol Use: Yes Alcohol type: beer alcohol intake frequency: 0-2 drinks per day (0-4 beers a day (varies each day), average 2 beers/day) Hx Substance Use: No substance use type: does not use Review of Systems Patient denies chest pain, shortness of breath, fever, chills, cough, wheezing, palpitations. Physical Exam Vital Signs VITALS BP 153/77 P 82 TEMP 97.9 SP02 97%RA RESP 16 PHYSICAL Full cervical extension range of motion. Full TMJ range of motion. TMD 2.5 finger breaths Mallampati Score 1 Dentition: intact, upper front tooth repair, right upper molar "broken" filling fixed Lungs: clear throughout to auscultation Cardiac: regular rate and rhythm, no murmurs noted Spine: normal Carotid arteries: negative bruit Extremities: no LE edema Lab Results Anesthesia Preop Results Results Anesthesia Widget: WBC 8.39 K/ul (4.8-10.8) 11/07/22 Hgb 13.7 g/dl (14.0-18.0) L 11/07/22 Hct 40.5 % (42.0-52.0) L 11/07/22 Plt 262 K/uL (130-400) 11/07/22 Na 138 mmol/L (136-145) 11/07/22 K 4.3 mmol/L (3.5-5.1) 11/07/22 Cl 105 mmol/L (98-107) 11/07/22 CO2 25 mmol/L (21-32) 11/07/22 BUN 14 mg/dl (6-23) 11/07/22 Creat 0.97 mg/dl (0.6-1.4) 11/07/22 Glucose Level 108 mg/dl (70-99(Fasting)) H 11/07/22 PT 10.1 Seconds (9.0-12.0) 11/07/22 PTT 32.5 Seconds (21.0-31.0) H 11/07/22 INR 0.9 (0.9-1.1) 11/07/22 Blood Type O Positive 11/07/22 Antibody Screen NEGATIVE 11/07/22 Testing Electrocardiogram Date: 07/02/22 NSR, rate 80 bpm Chest X-Ray Date: 07/02/22 Cardiomediastinal and hilar silhouettes are within normal limits. No pneumothorax, pleural effusion, airspace consolidation or overt pulmonary edema. Degenerative changes of the shoulders and spine. IMPRESSION: No acute process. Echocardiogram Date: 11/26/20 EF > 70% Mild cLVH Small underfilled LV chamber size No LV wall motion abnormalities Grade I diastolic dysfunction Poorly visualized valvular structures without significant stenosis or regurgitation by Doppler Pulmonary hypertension is present with PASP 39 mmHg Other Testing Liver ultrasound Date: 10/16/22 No focal hepatic lesion is identified on this examination. Hepatic steatosis. COVID-19 Risk Screen Screening Information COVID-19 Screen Date: 11/07/22 Exposure 21 Days Family/Household +COVID Last 21 Days: No Exposure 10 Days Any COVID Exposure Last 10 Days: No Symptoms Last 10 Days Experienced COVID Sx Last 10 Days: No + COVID 0-90 Days COVID + in Last 0-90 Days: No
[~2022-11-21 06:43] MED LIST changes: +BUPIVACAINE 0.5 % 5 MG/1 ML PF 10ML VIAL ONE; +FAMOTIDINE 20 MG TAB PO SCH; -GABAPENTIN 300 MG CAP PO SCH; +LR 500ML BOLUS, THEN 15ML/HR IV SCH; +LR 60ML/HR IV SCH; +METOCLOPRAMIDE HCL 10 MG TABLET PO SCH; +TRANEXAMIC ACID 1,000 MG **IV Pre-op IV SCH; +dexAMETHasone 4 MG TAB PO SCH
--- NOTE | 2022-11-21 06:55 | History & Physical Bridge Note ---
Date of Service November 21, 2022 History & Physical Bridge Note I have examined the patient, reviewed the History & Physical and in the interval since the performance of the History & Physical I have noted the following changes of clinical significance: no changes noted
[2022-11-21] MEDS ORDERED: MIDAZOLAM HCL 1 MG/ML 2ML VIAL ONE (07:51)
[2022-11-21] MEDS ORDERED: ePHEDrine sulfate 50 MG/ML AMP IV PRN (08:15)
[2022-11-21] MEDS ORDERED: ATROPINE SULFATE 0.1 MG/ML 10ML SYR IV PRN (08:15)
[2022-11-21] MEDS ORDERED: ONDANSETRON INJ 2 MG/ML 2 ML VIAL IV PRN ×2 (08:15→12:40)
[2022-11-21] MEDS ORDERED: PROPOFOL IV EMULSION 10 MG/ML 20 ML VIAL IV ONE ×2 (08:18→08:31)
[2022-11-21] MEDS ORDERED: ONDANSETRON INJ 2 MG/ML 2 ML VIAL ONE (08:45)
[2022-11-21] MEDS ORDERED: LIDOCAINE 2% 2 ML VIAL/AMP(20MG/ML) INFIL ONE (08:45)
[2022-11-21] MEDS ORDERED: fentaNYL citrate PF 100 MCG/2 ML VIAL ONE (08:45)
[2022-11-21] MEDS ORDERED: ROCURONIUM BROMIDE 10 MG/ML 5 ML VIAL IV ONE (08:45)
[2022-11-21] MEDS ORDERED: DEXAMETHASONE SOD INJ 4 MG/ML VIAL ONE (08:45)
[2022-11-21] MEDS ORDERED: BUPIVACAINE/EPINEPHRINE 0.5% MPF 1:200,000 30 ML VIAL ONE (09:05)
[2022-11-21] MEDS ORDERED: SUGAMMADEX SODIUM 200 MG/2 ML VIAL IV ONE (10:43)
--- NOTE | 2022-11-21 11:16 | Operative Report ---
PG Post Operative Report Pre & Post Diagnosis Operation Date: 11/21/22 08:55 Pre-Op Diagnosis: Right Hip Degenerative Joint Disease Post-Op Diagnosis: Right Hip Degenerative Joint Disease I identified the patient and participated in the time-out.: Yes Procedure Operation Date: 11/21/22 08:55 Actual Procedures p Right Total Hip Arthroplasty(Right) - Jude Peters MD Surgeon Jude Peters MD [employer] Bleacher Jared Terry PA-C Estimated Blood Loss 100 Findings Consistent with Post-Op Diagnosis Operative findings were advanced right hip DJD. He had a moderate-sized joint effusion. Significant grade 4 disease of the femoral head and acetabulum. Fairly sclerotic bone. Fluids 1400 cc Specimens Right femoral head sent for pathology Drains None Anesthesia Type General Complications none Disposition Accompanied Patient To Recovery: No Indications Patient 72-year-old gentleman said a several year history of increasing right hip pain discomfort. He is also had extensive spine issues and had multiple spine surgeries most recently 1 about 3 to 4 months ago. Continued be limited by right hip and leg pain and discomfort. He failed all conservative measures. X-rays show advanced hip arthritis. He elected proceed with surgical treatment. Description of Procedure Operative implants consist of: 1 Biomet G7 size 52 mm acetabular shell. 2. 6.5 cancellous acetabular screws 135 mm length 1 to 30 mm length. 3. Odessa eliminator. 4. Highly cross-linked polyethylene liner with a 52 mm outer diameter, 36 mm inner diameter. 5. DePuy Corail I 125 degree angle short neck size 10 femoral stem. 6. +5/36 mm ceramic articular ball. The patient was taken the operating, identified, placed on the operating table supine position protectors were properly padded. IV antibiotics tried by anesthesia team. A general anesthetic was implemented as this patient had multiple spine surgeries. The patient was then placed in the left lateral cubitus position. Axillary roll was placed. Stulberg hip positioner was used for positioning. The right hip and leg were then prepped and draped in usual sterile fashion. A posterior lateral posterior right hip was then performed through a curvilinear incision centered over the greater trochanter. Sharp dissection Through subcutaneous tissue down to the IT band gluteal fascia the IT band gluteal fascia/longitudinally in line with skin incision. The underlying greater bursa was sized. The piriformis and external rotators along with the posterior hip joint capsule were then released and the posterior aspect hip as a single layer. Great care was taken throughout the procedure protect sciatic nerve at all times. Hip was internally rotated and dislocated. A femoral neck osteotomy cut was made with a Final Cut about 12 mm above the lesser trochanter. Femoral head was removed and sent for pathology. The femur retracted anteriorly. Attention drawn the acetabulum. The acetabulum was excised. Pulmonary fat was excised. Sequential reaming the acetabulum performed again with size 43 and progressing up to 51. I reamed a little bit with a 52 reamer and then placed a 52 mm Biomet G7 acetabular shell in about 40 degrees lateral opening and 20 degrees of anteversion. I tried just a little bit of anteversion due to spine issues and spine stiffness. A trial liner was placed. Attention drawn the femur. The proximal femur was entered with a cookie cutter followed by canal finder. I then broached beginning size 8 and progressing up to 10. Got excellent fit of the tendon. We then trialed the hip. The standard neck to seemed a little bit long and too tight with too much offset. We elect to use a short neck. His hip was fully stable in full extension external rotation and internal rotation over 50 degrees at 90 degrees of flexion. Soft tissue tension seemed appropriate. I (implants. Nupathe all trial implants were removed. Odessa hole limiter was placed. Highly cross-linked polyethylene liner was placed. A size 10 Karaya short neck and 25 degree angle femoral stem was impacted in position. A +5/36 mm ceramic articular ball was placed. Hip was located once again found to be stable. Attention drawn to closing. The wounds irrigated cosigns pulsatile lavage solution. I did inject locally with 60 cc of half percent Marcaine with epinephrine. Posterior capsule and external rotators were then repaired through drill holes in the posterior trochanter with #2 Tycron suture. The IT band gluteal fascia then closed with #1 PDS suture in a running fashion for subcutaneous tissues then closed in 2 layers with deep layer #1 Vicryl suture in the subcutaneous tissues with 2-0 Dexon suture in a buried interrupted fashion. Skin was closed with skin lloyd. Leg was then cleaned and dried and sterile dressed with Xeroform, 4 fours, ABD pad and foam tape was applied. Patient then brought out of general esthesia and transferred to the recovery in stable condition. Patient tolerated the procedure well and there were no complications. Jared Terry, my physician administrative assistant data entry, was present for the entire procedure. His assistance was essential and required for appropriate patient positioning, prepping and draping, surgical exposure, performing the technical details of the operation, placement the implants, closure of the wound, and placement of the sterile bandage. I attest to the content of the Intraoperative Record and any orders documented therein. Any exceptions are noted below.
[2022-11-21] MEDS: fentaNYL citrate PF 100 MCG/2 ML VIAL IV PRN ×4 (11:17→11:32)
[2022-11-21] MEDS ORDERED: HYDROmorphone INJ 2 MG/ML SYR/VIAL ONE (11:36)
[2022-11-21] MEDS: HYDROmorphone INJ 0.5 MG/0.5 ML SYR IV PRN ×3 (11:40→12:00)
--- NOTE | 2022-11-21 11:41 | XRay Report ---
XR hip 1V RT w pelvis CLINICAL HISTORY: Postoperative evaluation. COMPARISON: CT of the abdomen and pelvis October 10, 2022. Right hip radiograph March 15, 2022. FINDINGS: Alignment of the total right hip arthroplasty is anatomic. There is no periprosthetic frac ture. No unexpected radiopaque foreign bodies are present. Skin lloyd are noted. Postoperative find ings within the spine are partially imaged. IMPRESSION: Expected findings following total right hip arthroplasty. ACT 112: Negative or not required by law. Electronically signed by: Carlos A Calderón M.D. 11/21/2022 11:40 AM
[2022-11-21] MEDS ORDERED: ALBUTEROL HFA 8 GM INHALER INH PRN (12:40)
[2022-11-21] MEDS ORDERED: PANTOprazole 40 MG TAB PO SCH (12:40)
[2022-11-21] MEDS ORDERED: COLCHICINE 0.6 MG TAB PO PRN (12:40)
[2022-11-21] MEDS ORDERED: CYANOCOBALAMIN (B-12) 500 MCG TABLET PO SCH (12:40)
[2022-11-21] MEDS ORDERED: LORATADINE 10 MG TAB PO SCH (12:40)
[2022-11-21] MEDS ORDERED: TRIAMCINOLONE ACET 0.1% CR 15 GM TUBE TOP PRN (12:40)
[2022-11-21] MEDS ORDERED: SODIUM CHLORIDE 0.9% 1000ML 1,000 ML IV SCH (12:40)
[2022-11-21] MEDS ORDERED: lisinopril 20 MG TAB PO SCH (12:40)
[2022-11-21] MEDS ORDERED: allopurinoL 100 MG TAB PO SCH (12:40)
[2022-11-21] MEDS ORDERED: bisacodyL 10 MG SUPP PR PRN (12:40)
[2022-11-21] MEDS ORDERED: CHOLECALCIFEROL 1,000 UNITS 25 MCG TAB PO SCH (12:40)
[2022-11-21] MEDS ORDERED: ALUMINUM/MAGNESIUM SUSP 30 ML UDC PO PRN (12:40)
[2022-11-21] MEDS ORDERED: HYDROmorphone INJ 0.5 MG/0.5 ML SYR IV PRN (12:40)
[2022-11-21] MEDS ORDERED: NALOXONE HCL 0.4 MG/1 ML VIAL/CARP IV PRN (12:40)
[2022-11-21] MEDS ORDERED: MAGNESIUM HYDROXIDE SUSP 30 ML UDC PO PRN (12:40)
[2022-11-21] MEDS ORDERED: METOCLOPRAMIDE HCL INJ 5 MG/ML 2 ML VIAL IV PRN (12:40)
[2022-11-21] MEDS: traMADol HCL 50 MG TABLET PO PRN ×2 (13:35→22:23)
[2022-11-21] MEDS: KETOROLAC TROMETHAMINE 15 MG/ML VIAL IV SCH ×2 (13:36→20:49)
[2022-11-21] MEDS: ACETAMINOPHEN 500 MG TAB PO SCH ×2 (13:36→20:50)
[2022-11-21] MEDS: GABAPENTIN 400 MG CAP PO SCH ×2 (13:37→20:51)
[2022-11-21] MEDS: GABAPENTIN 100 MG CAP PO SCH ×2 (13:37→20:49)
--- NOTE | 2022-11-21 13:44 | Anesthesiology Progress Note ---
Date of Service November 21, 2022 Anesthesia Post Procedure Vital Signs Vital Signs: Temp Pulse Pulse Resp BP BP Pulse Ox 11/21/22 13:18 36.8 C 110 H 16 138/74 94 11/21/22 12:45 11/21/22 12:45 36.5 C 98 H 18 137/72 99 11/21/22 12:15 93 H 12 145/71 H 93 11/21/22 12:05 87 12 114/76 96 11/21/22 11:55 94 H 12 129/71 95 11/21/22 11:35 96 H 18 149/82 H 92 11/21/22 11:45 93 H 12 142/71 H 96 11/21/22 11:25 94 H 16 145/76 H 97 11/21/22 11:15 36 C L 99 H 20 143/62 H 90 11/21/22 07:00 36.5 C 77 20 148/84 H 97 O2 Del Method O2 Flow Rate 11/21/22 13:18 Room Air 11/21/22 12:45 Nasal Cannula 2 11/21/22 12:45 Nasal Cannula 3 11/21/22 12:15 Nasal Cannula 3 11/21/22 12:05 Nasal Cannula 3 11/21/22 11:55 Nasal Cannula 3 11/21/22 11:35 Nasal Cannula 4 11/21/22 11:45 Nasal Cannula 4 11/21/22 11:25 Oxymask 5 11/21/22 11:15 Oxymask 5 11/21/22 07:00 Room Air Pain Intensity Right Hip: Pain Intensity: 2 Transfer of Care Handoff Completed per policy Notes Mental Status: alert / awake / arousable and participated in evaluation Patient Amnestic to Procedure: Yes Nausea / Vomiting: adequately controlled Pain: adequately controlled Airway Patency, RR, SpO2: stable & adequate BP & HR: stable & adequate Hydration State: stable & adequate Anesthetic Complications: no major complications apparent and Pt Satisfied with anesthetic care
[2022-11-21] MEDS ORDERED: ACETAMINOPHEN 500 MG TAB PO SCH (14:00)
[2022-11-21] MEDS: ceFAZolin 2000MG 2,000 MG/15 ML SYR IV SCH (16:44)
[2022-11-21] MEDS: ASCORBIC ACID 500 MG TAB PO SCH (16:45)
[2022-11-21] MEDS ORDERED: TRANEXAMIC ACID / 0.7% NACL 1,000 MG/100 ML BAG IV SCH (17:15)
[2022-11-21] MEDS: ASPIRIN 81 MG ECTAB PO SCH (20:50)
[2022-11-21] MEDS: DOCUSATE SODIUM 100 MG CAP PO SCH (20:50)
[2022-11-21] MEDS ORDERED: NON-FORMULARY MEDICATION (Glucos Sul 2kcl-Msm-Chond-C-Mn [Glucosamine Chondroitin] 550-30- PO SCH (21:00)
[2022-11-21] MEDS ORDERED: ATORVASTATIN 40 MG TAB PO SCH (21:00)
[2022-11-21] MEDS ORDERED: SENNA 8.6 MG TAB PO SCH ×2 (21:00)
[2022-11-22] MEDS: ceFAZolin 2000MG 2,000 MG/15 ML SYR IV SCH (01:51)
[2022-11-22] MEDS: KETOROLAC TROMETHAMINE 15 MG/ML VIAL IV SCH ×2 (01:51→08:58)
[2022-11-22] MEDS: ACETAMINOPHEN 500 MG TAB PO SCH (06:00)
[2022-11-22] MEDS: traMADol HCL 50 MG TABLET PO PRN (06:03)
--- NOTE | 2022-11-22 07:22 | Orthopedic Progress Note ---
Date of Service November 22, 2022 Assessment & Plan (1) Status post total hip replacement, right: Postop day 1 from right total hip replacement doing well. Pain is controlled. Hip is located. He is neurologically intact. 1. DVT prophylax include thigh-high teds SCDs and aspirin twice a day. 2. PT OT. Weight-bear as tolerated. Right total hip protocol. 3. Routine wound care. 4. Disposition plan to discharge home today if he does okay in therapy Subjective . 72-year-old gentleman postop day 1 from a right total hip replacement. He is doing pretty well. Pain is controlled. He has been up and walking around and using his walker appropriately. Reports fairly mild pain. He is hoping to go home. Review of Systems All systems reviewed & are unremarkable except as noted in HPI & below. Physical Exam . Physical examination reveals a pleasant elderly male. Sitting up in his bedside chair and looks comfortable. Lungs clear to auscultation. Heart is regular rate and rhythm. Abdomen soft nontender nondistended extremities grossly neuro vas intact as follows. Examination the right hip reveals the dressing clean dry and intact. Thigh is soft and supple. His hip is located. Can dorsiflex and plantarflex his foot appropriately. He is neurologically intact Results & Data Results & Data Laboratory Results . Labs are pending Diagnostic Findings . PG Care Time/CCT Total # of Minutes Spent Total Time Spent with Patient: Total time spent is greater than 50% in coordination of care (as documented) at patient's floor/unit and/or counseling patient: Coding Level of Care Code 78209 Post Operative Follow-Up Diagnoses Status post total hip replacement, right Z96.641
[2022-11-22] MEDS ORDERED: dexAMETHasone 10 MG in SYRINGE 0 ML IV SCH (08:00)
[2022-11-22 08:21] LABS: Basophils # (auto) 0.01 K/uL (0-0.2); Basophils % (auto) 0.1 %; Hematocrit (blood only) 35.8 % (42.0-52.0); Immature Granulocytes # (auto) 0.07 K/uL (0.01-0.20); Immature Granulocytes % (auto) 0.5 %; Lymphocytes # (auto) 1.57 K/uL (1.2-3.4); Lymphocytes % (auto) 11.1 %; Mean Corpuscular Hemoglobin 30.6 pg (25.0-34.0); Mean Corpuscular Hgb Conc 33.5 g/dL (32.0-36.0); Mean Corpuscular Volume 91.3 fL (80.0-100.0); Mean Platelet Volume 10.6 fL (9.4-12.4); Monocytes # (auto) 1.16 K/uL (0.11-0.59); Monocytes % (auto) 8.2 %; Neutrophils # (auto) 11.33 K/uL (1.40-6.50); Neutrophils % (auto) 80.1 %; Platelet Count 274 K/uL (130-400); RDW Coefficient of Variation 14.6 % (11.5-14.5); Red Blood Count 3.92 M/uL (4.70-6.10); White Blood Count 14.14 K/ul (4.8-10.8)
[2022-11-22 08:33] LABS: BUN Creatinine Ratio 22.3 (10-20); Calcium 8.2 mg/dl (8.6-10.3); Creatinine Clr Calc Pharmacy 62.1 ml/min; Est GFR (African American) 69.4 ml/min; Est GFR (Non-African American) 59.9 ml/min; Potassium 4.6 mmol/L (3.5-5.1)
[2022-11-22] MEDS: ASCORBIC ACID 500 MG TAB PO SCH (08:55)
[2022-11-22] MEDS: GABAPENTIN 400 MG CAP PO SCH (08:58)
[2022-11-22] MEDS: ASPIRIN 81 MG ECTAB PO SCH (08:59)
[2022-11-22] MEDS: DOCUSATE SODIUM 100 MG CAP PO SCH (08:59)
[2022-11-22] MEDS: GABAPENTIN 100 MG CAP PO SCH (09:00)
[2022-11-22] MEDS ORDERED: TAMSULOSIN HCL 0.4 MG CAP PO SCH (09:00)
[2022-11-22] MEDS ORDERED: FLUTICASONE FUROATE 200MCG 14 PUFFS/INHALER INH SCH (09:00)
[2022-11-22] MEDS ORDERED: NON-FORMULARY MEDICATION (Amino Acids [Amino Acid] Capsule) PO SCH (09:00)
[2022-11-22] MEDS ORDERED: MULTIVITAMIN TAB PO SCH (09:00)
--- NOTE | 2022-11-26 09:17 | Discharge Summary ---
Date of Service November 26, 2022 Discharge Data Procedures Performed Operation Date: 11/21/22 08:55 Actual Procedures p Right Total Hip Arthroplasty(Right) - Jude Peters MD Hospital Course (1) Status post total hip replacement, right: This is a 72 year old patient admitted on 11/21/22 and underwent total hip arthroplasty. He tolerated the procedure well and there were no complications. Transferred to the PACU post op and later to the orthopedic floor for further care. He was given ancef for antibiotic prophylaxis. He was also given SANDRA stockings, SCDs, and aspirin for DVT prophylaxis. Hemoglobin, hematocrit, and vital signs were monitored during his hospital stay and remained stable. Did not require any blood transfusions. There were no complications during his hospital stay. By post op day #1 the patient was tolerating a regular diet, pain was reasonably controlled with oral pain medicine, and he was participating in physical therapy. On post op day #1 the patient was discharged home and set up with home health care. He was given printed discharge instructions including prescriptions for extra strength tylenol, aspirin, cefadroxil, ketorolac, zofran, senokot, flomax, and tramadol. Continue hip precautions. Continue physical therapy, weight bearing as tolerated. Continue SANDRA stockings. Follow up approximately 2 weeks post op or sooner if there are problems or concerns. Coding Level of Care Code None Diagnoses Status post total hip replacement, right Z96.641
== END 2022-11-22 10:59 | disposition home health service (06) ==
LOC: 3E 06:43 → ASU 06:43